=== PATIENT | female | born 1995 | race Caucasian/White ===

== ENCOUNTER 2018-02-15 13:51 | Emergency (ER) | payer OTHER ==
[2018-02-15 13:57] VITALS: BP 126/80; PULSE 67; RESP 20; TEMP 98.1
--- NOTE | 2018-02-15 14:23 | ED ---
General Adult HPI - General Chief complaint: Skin/Abscess/Foreign Body Stated complaint: Abcess on arm Source: patient, RN notes reviewed Mode of arrival: ambulatory Limitations: no limitations - History of Present Illness Initial comments: Patient is a 22-year-old female with history of IV drug use who presents the emergency department from [facility] with complaint of right antecubital abscess that has been present for 1 week. Denies antibiotic treatment. Patient denies any recent fever, chills, decreased ROM, shortness of breath, chest pain, back pain, abdominal pain, nausea or vomiting, numbness or tingling, headaches or visual changes, or any other complaints. - Related Data Previous Rx's Medication Instructions Recorded Clindamycin [Cleocin] 450 mg PO Q8H 10 Days capsule 02/15/18 Allergies Allergy/AdvReac Type Severity Reaction Status Date / Time Sulfa (Sulfonamide Allergy Rash/Hives Verified 02/15/18 13:56 Antibiotics) Review of Systems ROS Statement: Those systems with pertinent positive or pertinent negative responses have been documented in the HPI. ROS Other: All systems not noted in ROS Statement are negative. Past Medical History Past Medical History: No Reported History History of Any Multi-Drug Resistant Organisms: None Reported Past Surgical History: No Surgical Hx Reported Past Psychological History: Bipolar Smoking Status: Current every day smoker Past Alcohol Use History: None Reported Past Drug Use History: Heroin General Exam Limitations: no limitations General appearance: alert, in no apparent distress Head exam: Present: atraumatic, normocephalic Eye exam: Present: normal appearance Respiratory exam: Present: normal lung sounds bilaterally Cardiovascular Exam: Present: regular rate, normal rhythm Extremities exam: Present: full ROM, normal capillary refill, other (4x4 cm area of induration with central area of fluctuance.) Neurological exam: Present: alert, oriented X3 Psychiatric exam: Present: normal affect, normal mood Skin exam: Present: warm, dry Course Vital Signs 02/15/18 13:54 Temperature 98.1 F Pulse Rate 67 Respiratory 20 Rate Blood Pressure 126/80 O2 Sat by Pulse 99 Oximetry Procedures - Incision & Drainage Consent Obtained: verbal consent Time Out Performed?: Yes Site: upper extremity Size (cm): 4 (4x4 cm area of induration with 1x1 cm area of fluctuance.) I&D Cleaning Method: Betadine Sterile Field Used?: Yes Needle Aspiration Performed?: Yes I&D Drainage Obtained: Pus Culture Obtained?: Yes Patient Tolerated Procedure: well, no complications Medical Decision Making - Medical Decision Making Elbow x-ray negative for foreign body. Needle aspiration with aerobic wound culture done. Prescribed Clindamycin. Case discussed in detail with attending physician Dr. Greco. Disposition Clinical Impression: Abscess Disposition: HOME SELF-CARE Condition: Good Instructions: Abscess (ED) Prescriptions: Clindamycin [Cleocin] 450 mg PO Q8H 10 Days capsule Is patient prescribed a controlled substance at d/c from ED?: No Referrals: Nonstaff,Physician [Primary Care Provider] - 1-2 days Alfredo Magaña MD [STAFF PHYSICIAN] - 1-2 days
--- NOTE | 2018-02-15 14:49 | XR ---
EXAMINATION TYPE: XR elbow limited RT DATE OF EXAM: 02/15/2018 CLINICAL HISTORY: pain TECHNIQUE: Frontal, lateral images of the right elbow are obtained. COMPARISON: None. FINDINGS: There is no acute fracture/dislocation evident of the elbow. No abnormal fat pad signs ar e seen. The overlying soft tissue appears unremarkable. IMPRESSION: There is no acute fracture or dislocation of the elbow. ICD 10 NO FRACTURE, INITIAL EVALUATION
[2018-02-15] MEDS ORDERED: LIDOCAINE 1%-EPI 1:100,000 20 ML VIAL SQ ONE (15:47)
== END 2018-02-15 17:25 | disposition home or self-care (01) ==
LOC: EC 13:51
DX: L02.413 Cutaneous abscess of right upper limb (principal); F17.200 Nicotine dependence, unspecified, uncomplicated; Z88.2 Allergy status to sulfonamides; Z53.8 Procedure and treatment not carried out for other reasons
CPT/HCPCS: 10160; 87070; 87077; 87186; 87205; 99283

== ENCOUNTER 2018-02-18 17:59 | Inpatient (IN) | payer OTHER ==
[2018-02-18] MEDS ORDERED: IBUPROFEN 600 MG TAB PO STA (18:19)
[2018-02-18] MEDS ORDERED: VANCOMYCIN IV PER PHARMACY 1 EACH MISC MISCELLANE PRN (18:19)
[2018-02-18] MEDS ORDERED: PIPERACILLIN-TAZOBACTAM 3.375 GM in SODIUM CHLORIDE 0.9% 100 ML IVPB STA (18:19)
[2018-02-18] MEDS ORDERED: SODIUM CHLORIDE 0.9% 1,000 ML IV STA ×2 (18:24→19:51)
[2018-02-18] MEDS ORDERED: VANCOMYCIN 1,250 MG in SODIUM CHLORIDE 0.9% 250 ML IVPB STA (18:27)
--- NOTE | 2018-02-18 18:31 | ED ---
General Adult HPI - General Chief complaint: Fever Stated complaint: Fever,sepsis Time Seen by Provider: 02/18/18 18:11 Source: patient, EMS, RN notes reviewed Mode of arrival: EMS Limitations: no limitations - History of Present Illness Initial comments: 22-year-old female presents to the emergency department for chief complaint of fever x 1 day. Patient is an IV drug user. Patient states she uses heroin. Patient states she had an abscess form in her right elbow about 1.5 weeks ago. She states she was seen in the emergency department at that time and it was drained and cultured. Patient was put on antibiotics. Patient states she has been taking the antibiotics but she developed a fever today. Patient states she last used heroin about 6 days ago and shortly after that went to [place]. Patient states she also has a cold. She states she has had a mild cough and congestion for the past few days as well. Patient does admit to minimal sharp chest pain. Patient has no other complaints at this time including shortness of breath, abdominal pain, nausea or vomiting, headache, or visual changes. - Related Data Previous Rx's Medication Instructions Recorded Clindamycin [Cleocin] 450 mg PO Q8H 10 Days capsule 02/15/18 Allergies Allergy/AdvReac Type Severity Reaction Status Date / Time Sulfa (Sulfonamide Allergy Rash/Hives Verified 02/18/18 18:11 Antibiotics) Review of Systems ROS Statement: Those systems with pertinent positive or pertinent negative responses have been documented in the HPI. ROS Other: All systems not noted in ROS Statement are negative. Past Medical History Past Medical History: No Reported History History of Any Multi-Drug Resistant Organisms: MRSA Date of last positivie culture/infection: 02/15/18 MDRO Source:: ARM Past Surgical History: No Surgical Hx Reported Past Psychological History: Bipolar Smoking Status: Current every day smoker Past Alcohol Use History: None Reported Past Drug Use History: Heroin General Exam Limitations: no limitations General appearance: alert, in no apparent distress (Patient is well-appearing, alert and answering questions without difficulty. She is pleasant and responsive.) Head exam: Present: atraumatic, normocephalic, normal inspection Eye exam: Present: normal appearance, PERRL, EOMI. Absent: scleral icterus, conjunctival injection, periorbital swelling ENT exam: Present: normal exam, normal oropharynx, mucous membranes moist, TM's normal bilaterally, normal external ear exam Neck exam: Present: normal inspection, full ROM. Absent: tenderness, meningismus, lymphadenopathy Respiratory exam: Present: normal lung sounds bilaterally. Absent: respiratory distress, wheezes, rales, rhonchi, stridor Cardiovascular Exam: Present: regular rate, normal rhythm, normal heart sounds. Absent: systolic murmur (No significant murmur noted), diastolic murmur (No significant murmur noted), rubs, gallop, clicks GI/Abdominal exam: Present: soft, normal bowel sounds. Absent: distended, tenderness, guarding, rebound, rigid Extremities exam: Present: tenderness (Tenderness over abscess in the antecubital fossa), normal capillary refill (Capillary refill less than 2 seconds and radial pulse 2+ in the right upper extremity), joint swelling ( Minimal swelling noted in the anterior right elbow), other (Patient has a 4 cm x 4 cm area of induration noted to the right antecubital fossa, no fluctuance noted at this time.). Absent: full ROM (Patient has about 90 flexion of the right elbow with full extension and full range motion in the right wrist.) Neurological exam: Present: alert, oriented X3, CN II-XII intact Psychiatric exam: Present: normal affect, normal mood Course Vital Signs 02/18/18 02/18/18 02/18/18 18:03 19:10 20:07 Temperature 102.7 F H Pulse Rate 121 H 104 H Respiratory 20 18 16 Rate Blood Pressure 101/60 116/72 111/63 O2 Sat by Pulse 94 L 97 99 Oximetry 02/18/18 02/18/18 20:29 21:02 Temperature 100.5 F H 100.2 F H Pulse Rate 97 Respiratory 18 Rate Blood Pressure 107/64 O2 Sat by Pulse 97 Oximetry EKG Findings - EKG Comments: EKG Findings:: NSR, Ventricular rate 104, LA interval 162, QTC 497, Medical Decision Making - Medical Decision Making 22-year-old female with a past history of IV drug abuse presents to the emergency department for a chief complaint of fever times one day. Patient states she had abscess of the right antecubital fossa drained 4 days ago here and was started on clindamycin. According to culture results clindamycin was resistant. Patient states this abscess was from IV drug abuse. Abscess is about 4 cm x 4 cm in the right antecubital fossa. Patient has 90 flexion of the right elbow, full extension. X-ray of the elbow was repeated which shows no acute abnormality. Patient also complains of upper respiratory infection and has had a cough for the past few days. Patient initially presents with a temperature of 102.7 and a pulse rate of 121. She was given Tylenol. CBC did show a white count of 12.7. Patient was immediately given vancomycin, Zosyn, fluids to cover for IV drug abuse. Potassium is 3.4, patient given 40 oral K Dur. Ketones for possibly urine, patient given 2 L of fluids. Blood pressure is within acceptable limits, patient is not hypotensive. Sepsis protocol was followed. lactic 1.1. Chest x-ray shows patchy perihilar and left lower lobe infiltrate as well as additional right lower lobe infiltrate. Patient also started on Levaquin. At this time patient will be admitted to the hospital for pneumonia as well as abscess with h/o IVDA. Levaquin and vancomycin will be continued. - Lab Data Result diagrams: 02/18/18 19:30 02/18/18 18:39 Lab Results 02/18/18 02/18/18 02/18/18 Range/Units 18:39 18:39 18:39 WBC (3.8-10.6) k/uL RBC (3.80-5.40) m/uL Hgb (11.4-16.0) gm/dL Hct (34.0-46.0) % MCV (80.0-100.0) fL MCH (25.0-35.0) pg MCHC (31.0-37.0) g/dL RDW (11.5-15.5) % Plt Count (150-450) k/uL Neutrophils % % Lymphocytes % % Monocytes % % Eosinophils % % Basophils % % Neutrophils # (1.3-7.7) k/uL Lymphocytes # (1.0-4.8) k/uL Monocytes # (0-1.0) k/uL Eosinophils # (0-0.7) k/uL Basophils # (0-0.2) k/uL ESR (0-20) mm/hr PT (9.0-12.0) sec INR (<1.2) APTT (22.0-30.0) sec Sodium 138 (137-145) mmol/L Potassium 3.4 L (3.5-5.1) mmol/L Chloride 106 (98-107) mmol/L Carbon Dioxide 19 L (22-30) mmol/L Anion Gap 13 mmol/L BUN 6 L (7-17) mg/dL Creatinine 0.52 (0.52-1.04) mg/dL Est GFR (CKD-EPI)AfAm >90 (>60 ml/min/1.73 sqM) Est GFR (CKD-EPI)NonAf >90 (>60 ml/min/1.73 sqM) Glucose 119 H (74-99) mg/dL Plasma Lactic Acid Enrico 1.1 (0.7-2.0) mmol/L Calcium 9.4 (8.4-10.2) mg/dL Total Bilirubin 1.4 H (0.2-1.3) mg/dL AST 23 (14-36) U/L ALT 30 (9-52) U/L Alkaline Phosphatase 102 (38-126) U/L Total Protein 6.8 (6.3-8.2) g/dL Albumin 3.9 (3.5-5.0) g/dL Urine Color Yellow Urine Appearance Clear (Clear) Urine pH 6.0 (5.0-8.0) Ur Specific [place] 1.025 (1.001-1.035) Urine Protein 2+ H (Negative) Urine Glucose (UA) Negative (Negative) Urine Ketones 4+ H (Negative) Urine Blood Negative (Negative) Urine Nitrite Negative (Negative) Urine Bilirubin 1+ H (Negative) Urine Urobilinogen 4.0 (<2.0) mg/dL Ur Leukocyte Esterase Negative (Negative) Urine RBC 1 (0-5) /hpf Urine WBC 8 H (0-5) /hpf Ur Squamous Epith Cells 2 (0-4) /hpf Amorphous Sediment Rare H (None) /hpf Hyaline Casts 3 H (0-2) /lpf Urine Mucus Many H (None) /hpf Urine HCG, Qual (Not Detectd) Influenza Type A RNA (Not Detectd) Influenza Type B (PCR) (Not Detectd) 02/18/18 02/18/18 02/18/18 Range/Units 18:39 19:30 19:30 WBC 12.7 H (3.8-10.6) k/uL RBC 4.38 (3.80-5.40) m/uL Hgb 13.1 (11.4-16.0) gm/dL Hct 37.2 (34.0-46.0) % MCV 85.1 (80.0-100.0) fL MCH 30.0 (25.0-35.0) pg MCHC 35.2 (31.0-37.0) g/dL RDW 13.5 (11.5-15.5) % Plt Count 254 (150-450) k/uL Neutrophils % 91 % Lymphocytes % 4 % Monocytes % 3 % Eosinophils % 2 % Basophils % 0 % Neutrophils # 11.5 H (1.3-7.7) k/uL Lymphocytes # 0.5 L (1.0-4.8) k/uL Monocytes # 0.4 (0-1.0) k/uL Eosinophils # 0.2 (0-0.7) k/uL Basophils # 0.0 (0-0.2) k/uL ESR 26 H (0-20) mm/hr PT 19.4 H (9.0-12.0) sec INR 2.0 H (<1.2) APTT 25.8 (22.0-30.0) sec Sodium (137-145) mmol/L Potassium (3.5-5.1) mmol/L Chloride (98-107) mmol/L Carbon Dioxide (22-30) mmol/L Anion Gap mmol/L BUN (7-17) mg/dL Creatinine (0.52-1.04) mg/dL Est GFR (CKD-EPI)AfAm (>60 ml/min/1.73 sqM) Est GFR (CKD-EPI)NonAf (>60 ml/min/1.73 sqM) Glucose (74-99) mg/dL Plasma Lactic Acid Enrico (0.7-2.0) mmol/L Calcium (8.4-10.2) mg/dL Total Bilirubin (0.2-1.3) mg/dL AST (14-36) U/L ALT (9-52) U/L Alkaline Phosphatase (38-126) U/L Total Protein (6.3-8.2) g/dL Albumin (3.5-5.0) g/dL Urine Color Urine Appearance (Clear) Urine pH (5.0-8.0) Ur Specific [place] (1.001-1.035) Urine Protein (Negative) Urine Glucose (UA) (Negative) Urine Ketones (Negative) Urine Blood (Negative) Urine Nitrite (Negative) Urine Bilirubin (Negative) Urine Urobilinogen (<2.0) mg/dL Ur Leukocyte Esterase (Negative) Urine RBC (0-5) /hpf Urine WBC (0-5) /hpf Ur Squamous Epith Cells (0-4) /hpf Amorphous Sediment (None) /hpf Hyaline Casts (0-2) /lpf Urine Mucus (None) /hpf Urine HCG, Qual Not Detected (Not Detectd) Influenza Type A RNA (Not Detectd) Influenza Type B (PCR) (Not Detectd) 02/18/18 Range/Units 20:10 WBC (3.8-10.6) k/uL RBC (3.80-5.40) m/uL Hgb (11.4-16.0) gm/dL Hct (34.0-46.0) % MCV (80.0-100.0) fL MCH (25.0-35.0) pg MCHC (31.0-37.0) g/dL RDW (11.5-15.5) % Plt Count (150-450) k/uL Neutrophils % % Lymphocytes % % Monocytes % % Eosinophils % % Basophils % % Neutrophils # (1.3-7.7) k/uL Lymphocytes # (1.0-4.8) k/uL Monocytes # (0-1.0) k/uL Eosinophils # (0-0.7) k/uL Basophils # (0-0.2) k/uL ESR (0-20) mm/hr PT (9.0-12.0) sec INR (<1.2) APTT (22.0-30.0) sec Sodium (137-145) mmol/L Potassium (3.5-5.1) mmol/L Chloride (98-107) mmol/L Carbon Dioxide (22-30) mmol/L Anion Gap mmol/L BUN (7-17) mg/dL Creatinine (0.52-1.04) mg/dL Est GFR (CKD-EPI)AfAm (>60 ml/min/1.73 sqM) Est GFR (CKD-EPI)NonAf (>60 ml/min/1.73 sqM) Glucose (74-99) mg/dL Plasma Lactic Acid Enrico (0.7-2.0) mmol/L Calcium (8.4-10.2) mg/dL Total Bilirubin (0.2-1.3) mg/dL AST (14-36) U/L ALT (9-52) U/L Alkaline Phosphatase (38-126) U/L Total Protein (6.3-8.2) g/dL Albumin (3.5-5.0) g/dL Urine Color Urine Appearance (Clear) Urine pH (5.0-8.0) Ur Specific [place] (1.001-1.035) Urine Protein (Negative) Urine Glucose (UA) (Negative) Urine Ketones (Negative) Urine Blood (Negative) Urine Nitrite (Negative) Urine Bilirubin (Negative) Urine Urobilinogen (<2.0) mg/dL Ur Leukocyte Esterase (Negative) Urine RBC (0-5) /hpf Urine WBC (0-5) /hpf Ur Squamous Epith Cells (0-4) /hpf Amorphous Sediment (None) /hpf Hyaline Casts (0-2) /lpf Urine Mucus (None) /hpf Urine HCG, Qual (Not Detectd) Influenza Type A RNA Not Detected (Not Detectd) Influenza Type B (PCR) Not Detected (Not Detectd) Disposition Clinical Impression: Pneumonia, IV drug abuse, Abscess, Hypokalemia Disposition: ADMITTED IP TO THIS HOSP Condition: Good Is patient prescribed a controlled substance at d/c from ED?: No Time of Disposition: 20:39
--- NOTE | 2018-02-18 19:01 | XR ---
EXAMINATION TYPE: XR elbow complete RT DATE OF EXAM: 02/18/2018 CLINICAL HISTORY: pain TECHNIQUE: Frontal, lateral and oblique images of the right elbow are obtained. COMPARISON: 02/15/2018 FINDINGS: There is no acute fracture/dislocation evident of the elbow. No abnormal fat pad signs ar e seen. The overlying soft tissue appears unremarkable. IMPRESSION: There is no acute fracture or dislocation of the elbow. ICD 10 NO FRACTURE, INITIAL EVALUATION
[2018-02-18 19:02] LABS: Amorphous Sediment,Urine Rare /hpf; Appearance,Urine Clear (Clear); Bilirubin,Urine 1+ (Negative); Blood,Urine Negative (Negative); Color,Urine Yellow; Glucose,Urine (UA) Negative (Negative); Hyaline Casts,Urine 3 /lpf (0-2); Ketones,Urine 4+ (Negative); Leukocyte Esterase,Urine Negative (Negative); Mucus,Urine Many /hpf; Nitrite,Urine Negative (Negative); Protein,Urine 2+ (Negative); RBC,Urine 1 /hpf (0-5); Specific Gravity,Urine 1.025 (1.001-1.035); Squamous Epithelial Cell,Urine 2 /hpf (0-4); WBC,Urine 8 /hpf (0-5)
[2018-02-18 19:08] LABS: ALT 30 U/L (9-52); AST 23 U/L (14-36); Albumin 3.9 g/dL (3.5-5.0); Alkaline Phosphatase 102 U/L (38-126); Anion Gap 13 mmol/L; Blood Urea Nitrogen 6 mg/dL (7-17); Calcium 9.4 mg/dL (8.4-10.2); Carbon Dioxide 19 mmol/L (22-30); Chloride 106 mmol/L (98-107); Glucose 119 mg/dL (74-99); Potassium 3.4 mmol/L (3.5-5.1); Sodium 138 mmol/L (137-145); Total Bilirubin 1.4 mg/dL (0.2-1.3); Total Protein 6.8 g/dL (6.3-8.2)
--- NOTE | 2018-02-18 19:23 | XR ---
EXAMINATION TYPE: XR chest 2V DATE OF EXAM: 02/18/2018 COMPARISON: NONE HISTORY: Chest pain TECHNIQUE: Frontal and lateral views of the chest are obtained. FINDINGS: Patchy perihilar and left lower lobe infiltrate as well as additional infiltrate right lower lobe. Co rrelate for pneumonia. No evidence for pneumothorax. No pleural effusion. The cardiac silhouette size is within normal limits. The osseous structures are grossly intact. IMPRESSION: 1. Patchy perihilar and left lower lobe infiltrate as well as additional infiltrate right lower lobe . Correlate for pneumonia.
[2018-02-18 19:43] LABS: Basophils % (A) 0 %; Eosinophils # (A) 0.2 k/uL (0-0.7); Eosinophils % (A) 2 %; HCT 37.2 % (34.0-46.0); HGB 13.1 gm/dL (11.4-16.0); Lymphocytes # (A) 0.5 k/uL (1.0-4.8); Lymphocytes % (A) 4 %; MCHC 35.2 g/dL (31.0-37.0); MCV 85.1 fL (80.0-100.0); Mean Platelet Volume 7.3; Monocytes # (A) 0.4 k/uL (0-1.0); Monocytes % (A) 3 %; Neutrophils # (A) 11.5 k/uL (1.3-7.7); Neutrophils % (A) 91 %; Platelet Count 254 k/uL (150-450); RBC 4.38 m/uL (3.80-5.40); RDW 13.5 % (11.5-15.5); WBC 12.7 k/uL (3.8-10.6)
[2018-02-18 19:54] LABS: Partial Thromboplastin Time 25.8 sec (22.0-30.0); Prothrombin Time 19.4 sec (9.0-12.0)
[2018-02-18 20:29] LABS: Erythrocyte Sedimentation Rate 26 mm/hr (0-20)
[2018-02-18] MEDS ORDERED: POTASSIUM CHLORIDE ER 20 MEQ TAB.ER PO STA (20:31)
[2018-02-18] MEDS ORDERED: NALOXONE 0.4 MG/ML 1 ML VIAL IV PRN (20:31)
[2018-02-18] MEDS ORDERED: IBUPROFEN 600 MG TAB PO PRN (20:35)
[2018-02-18] MEDS: LEVOFLOXACIN 750MG-D5W PMX 750 MG in DEXTROSE/WATER 1 150ML.BAG IVPB SCH (22:24)
[2018-02-18] MEDS: SODIUM CHLORIDE 0.9% 1,000 ML IV SCH (22:36)
[2018-02-18] MEDS: ACETAMINOPHEN TAB 500 MG TAB PO SCH (23:36)
[2018-02-19] MEDS: SODIUM CHLORIDE 0.9% 1,000 ML IV SCH ×3 (05:34→21:23)
[2018-02-19] MEDS: VANCOMYCIN 1,250 MG in SODIUM CHLORIDE 0.9% 250 ML IVPB SCH ×3 (05:34→23:22)
[2018-02-19] MEDS: ACETAMINOPHEN TAB 500 MG TAB PO SCH ×3 (05:41→21:20)
[2018-02-19] MEDS ORDERED: POTASSIUM CHLORIDE ER 20 MEQ TAB.ER PO STA (11:26)
[2018-02-19] MEDS ORDERED: METHADONE 5 MG TAB PO SCH (12:15)
[2018-02-19] MEDS ORDERED: METHADONE 10 MG TAB PO SCH (12:30)
--- NOTE | 2018-02-19 12:41 | P.HPIM ---
History of Present Illness 22-year-old present female came in with compensative fever of 1 day and patient is found to have redness and possible abscess in the right antecubital fossa patient is IV drug user recently got admitted to [place] drug rehabitation program. She had this abscess about a week and half ago. Which is much worse and started having fevers now. Patient was started on IV vancomycin patient does have off with brownish sputum production and chest x-ray showing perihilar left lower lobe infiltrate and right lower lobe infiltrate possibly of pneumonia cannot be excluded patient was started on levofloxacin for this which will be continued for now blood cultures were obtained. She was never tested for hepatitis hepatitis panel will be ordered patient is comparing of severe pain in the right elbow area. Elbow x-ray did not show any fracture or dislocation there is a clear-cut needle villanueva in the right antecubital foci Review of Systems REVIEW OF SYSTEMS: CONSTITUTIONAL: No fever, no malaise, no fatigue. HEENT: No recent visual problems or hearing problems. Denied any sore throat. CARDIOVASCULAR: No chest pain, orthopnea, PND, no palpitations, no syncope. PULMONARY: No shortness of breath, no cough, no hemoptysis. GASTROINTESTINAL: No diarrhea, no nausea, no vomiting, no abdominal pain. NEUROLOGICAL: No headaches, no weakness, no numbness. HEMATOLOGICAL: Denies any bleeding or petechiae. GENITOURINARY: Denies any burning micturition, frequency, or urgency. MUSCULOSKELETAL/RHEUMATOLOGICAL: As mentioned in HPI ENDOCRINE: Denies any polyuria or polydipsia. The rest of the 14-point review of systems is negative. Past Medical History Past Medical History: No Reported History Additional Past Medical History / Comment(s): abcess rt arm ,bipolar stated see' s thrapist at [facility], pleurisy, per pt's mom they think in past pt had a mumur. History of Any Multi-Drug Resistant Organisms: MRSA Date of last positivie culture/infection: 02/15/18 MDRO Source:: ARM Past Surgical History: No Surgical Hx Reported Past Anesthesia/Blood Transfusion Reactions: No Reported Reaction Past Psychological History: Bipolar Smoking Status: Current every day smoker Past Alcohol Use History: None Reported Past Drug Use History: Heroin - Past Family History Mother Family Medical History: No Reported History Father Family Medical History: No Reported History Medications and Allergies Home Medications Medication Instructions Recorded Confirmed Type Acetaminophen Tab [Tylenol Tab] 650 mg PO Q4H PRN 02/18/18 02/18/18 History Clindamycin [Cleocin] 150 mg PO TID 02/18/18 02/18/18 History Ibuprofen [Motrin] 600 mg PO Q6HR PRN 02/18/18 02/18/18 History Multivitamin,Therapeutic [Thera] 1 tab PO DAILY 02/18/18 02/18/18 History Methadone [Dolophine] 60 mg PO DAILY 02/19/18 02/19/18 History Allergies Allergy/AdvReac Type Severity Reaction Status Date / Time Sulfa (Sulfonamide Allergy Rash/Hives Verified 02/18/18 21:16 Antibiotics) Physical Exam Vitals: Vital Signs Temp Pulse Pulse Resp BP BP Pulse Ox 02/18/18 23:55 99.0 F 91 16 99/61 95 02/18/18 21:15 99.6 F 106 H 16 117/77 99 02/18/18 21:02 100.2 F H 97 18 107/64 97 02/18/18 20:29 100.5 F H 02/18/18 20:07 104 H 16 111/63 99 02/18/18 19:10 18 116/72 97 02/18/18 18:03 102.7 F H 121 H 20 101/60 94 L Intake and Output 02/18/18 02/19/18 02/19/18 22:59 06:59 14:59 Intake Total 2000 1200 Balance 2000 1200 Intake: Amount of Fluid Infused ( 2000 ml) Intake, IV Titration 720 Amount Sodium Chloride 0.9% 1, 720 000 ml @ 120 mls/hr IV . [facility] Rx#:[id number] Oral 480 Other: # Voids 1 Weight 63.503 kg PHYSICAL EXAMINATION: GENERAL: The patient is alert and oriented x3, not in any acute distress. Well developed, well nourished. HEENT: Pupils are round and equally reacting to light. EOMI. No scleral icterus. No conjunctival pallor. Normocephalic, atraumatic. No pharyngeal erythema. No thyromegaly. CARDIOVASCULAR: S1 and S2 present. No murmurs, rubs, or gallops. PULMONARY: Chest is clear to auscultation, no wheezing or crackles. ABDOMEN: Soft, nontender, nondistended, normoactive bowel sounds. No palpable organomegaly. MUSCULOSKELETAL: No joint swelling or deformity. EXTREMITIES: No cyanosis, clubbing, or pedal edema. NEUROLOGICAL: Gross neurological examination did not reveal any focal deficits. SKIN: And has any duration redness local is of temperature with him needing marked in the antecubital foci patient does have redness and lymphangitic streaking extending in the posterior aspect of the right arm area Results CBC & Chem 7: 02/18/18 19:30 02/18/18 18:39 Labs: Abnormal Lab Results - Last 24 Hours (Table) 02/18/18 02/18/18 02/18/18 Range/Units 18:39 18:39 19:30 WBC 12.7 H (3.8-10.6) k/uL Neutrophils # 11.5 H (1.3-7.7) k/uL Lymphocytes # 0.5 L (1.0-4.8) k/uL ESR 26 H (0-20) mm/hr PT (9.0-12.0) sec INR (<1.2) Potassium 3.4 L (3.5-5.1) mmol/L Carbon Dioxide 19 L (22-30) mmol/L BUN 6 L (7-17) mg/dL Glucose 119 H (74-99) mg/dL Total Bilirubin 1.4 H (0.2-1.3) mg/dL C-Reactive Protein (<10.0) mg/L Urine Protein 2+ H (Negative) Urine Ketones 4+ H (Negative) Urine Bilirubin 1+ H (Negative) Urine WBC 8 H (0-5) /hpf Amorphous Sediment Rare H (None) /hpf Hyaline Casts 3 H (0-2) /lpf Urine Mucus Many H (None) /hpf 02/18/18 02/18/18 Range/Units 19:30 19:30 WBC (3.8-10.6) k/uL Neutrophils # (1.3-7.7) k/uL Lymphocytes # (1.0-4.8) k/uL ESR (0-20) mm/hr PT 19.4 H (9.0-12.0) sec INR 2.0 H (<1.2) Potassium (3.5-5.1) mmol/L Carbon Dioxide (22-30) mmol/L BUN (7-17) mg/dL Glucose (74-99) mg/dL Total Bilirubin (0.2-1.3) mg/dL C-Reactive Protein 236.0 H (<10.0) mg/L Urine Protein (Negative) Urine Ketones (Negative) Urine Bilirubin (Negative) Urine WBC (0-5) /hpf Amorphous Sediment (None) /hpf Hyaline Casts (0-2) /lpf Urine Mucus (None) /hpf Microbiology - Last 24 Hours (Table) 02/18/18 18:39 Urine Culture - Preliminary Urine,Voided Thrombosis Risk Factor Assmnt - Choose All That Apply Any of the Below Risk Factors Present?: No Other Risk Factors: No Thrombosis Risk Factor Assessment Level: Very Low Risk Assessment and Plan Plan: -Sepsis: Secondary to abscess in the right antecubital process of Gen. surgery will be consulted patient will be continued on antibiotics and cannot completely rule out pneumonia. Blood cultures were obtained and the patient will be continued on levofloxacin for now if patient has persistent bacteremia and endocarditis need to reconsider testing has that patient has bilateral pneumonia although patient is a smoker is definitely high risk for community- acquired pneumonia. -Hypokalemia potassium was supplemented -Bilateral pneumonia predominantly in the right lower lung urena. -Patient will be evaluated for hepatitis C because of her IV drug use -Nicotine use: Counseling was provided -IV drug use for which patient is on methadone rehabitation program after verifying methadone will be resumed
[2018-02-19] MEDS ORDERED: METHADONE 10 MG TAB PO ONE (14:00)
--- NOTE | 2018-02-19 15:57 | P.GSCN ---
History of Present Illness Consult date: 02/19/18 History of present illness: 22-year-old present female came presented with fever and pain and redness in the right antecubital fossa. She is noted to have a history of IV drug abuse and uses this site as an injection site. She states she first noticed an issue approximately 10 days ago. At that time, she states she was injecting and noticed the skin in the area began to become puffy. She states that's the last time that she injected her self and decided to start a drug rehabilitation program at that time. She states that over the past 10 days the redness in this area has increased and has become more painful. She states approximately 2 or 3 days ago, the site was incised in an urgent care or ER. She states there was some mild drainage and the area stopped draining. Currently, the patient states after antibiotics had been started that she is feeling much better. She states that the redness has decreased as well. She complains of some mild serous drainage from the site. She has no additional complaints. She denies any nausea or vomiting. She denies any chest pain at this time. She denies ever having a abscess like this previously. Review of Systems All systems: negative Past Medical History Past Medical History: No Reported History Additional Past Medical History / Comment(s): abcess rt arm ,bipolar stated see' s thrapist at [facility], pleurisy, per pt's mom they think in past pt had a mumur. History of Any Multi-Drug Resistant Organisms: MRSA Year Discovered:: 02/15/18 MDRO Source:: ARM Past Surgical History: No Surgical Hx Reported Past Anesthesia/Blood Transfusion Reactions: No Reported Reaction Past Psychological History: Bipolar Smoking Status: Current every day smoker Past Alcohol Use History: None Reported Past Drug Use History: Heroin - Past Family History Mother Family Medical History: No Reported History Father Family Medical History: No Reported History Medications and Allergies Home Medications Medication Instructions Recorded Confirmed Type Acetaminophen Tab [Tylenol Tab] 650 mg PO Q4H PRN 02/18/18 02/18/18 History Clindamycin [Cleocin] 150 mg PO TID 02/18/18 02/18/18 History Ibuprofen [Motrin] 600 mg PO Q6HR PRN 02/18/18 02/18/18 History Multivitamin,Therapeutic [Thera] 1 tab PO DAILY 02/18/18 02/18/18 History Methadone [Dolophine] 60 mg PO DAILY 02/19/18 02/19/18 History Allergies Allergy/AdvReac Type Severity Reaction Status Date / Time Sulfa (Sulfonamide Allergy Rash/Hives Verified 02/18/18 21:16 Antibiotics) Surgical - Exam Osteopathic Statement: *. No significant issues noted on an osteopathic structural exam other than those noted in the History and Physical/Consult. Vital Signs Temp Pulse Resp BP Pulse Ox 102.7 F H 121 H 20 101/60 94 L 02/18/18 18:03 02/18/18 18:03 02/18/18 18:03 02/18/18 18:03 02/18/18 18:03 - General well nourished, no distress - Eyes normal ocular movement - ENT no hearing loss - Neck trachea midline - Respiratory normal respiratory effort - Abdomen Soft, nontender, nondistended, no rebound, no guarding - Integumentary Right antecubital fossa with surrounding cellulitis. The area has some mild induration but no palpable fluctuance. There is some notable serous drainage from what appears to be a blister formation. She also is noted to have injection scarring. - Psychiatric oriented to time, oriented to person, oriented to place Results - Labs 02/18/18 19:30 02/18/18 18:39 Abnormal Lab Results - Last 24 Hours (Table) 02/18/18 02/18/18 02/18/18 Range/Units 18:39 18:39 19:30 WBC 12.7 H (3.8-10.6) k/uL Neutrophils # 11.5 H (1.3-7.7) k/uL Lymphocytes # 0.5 L (1.0-4.8) k/uL ESR 26 H (0-20) mm/hr PT (9.0-12.0) sec INR (<1.2) Potassium 3.4 L (3.5-5.1) mmol/L Carbon Dioxide 19 L (22-30) mmol/L BUN 6 L (7-17) mg/dL Glucose 119 H (74-99) mg/dL Total Bilirubin 1.4 H (0.2-1.3) mg/dL C-Reactive Protein (<10.0) mg/L Urine Protein 2+ H (Negative) Urine Ketones 4+ H (Negative) Urine Bilirubin 1+ H (Negative) Urine WBC 8 H (0-5) /hpf Amorphous Sediment Rare H (None) /hpf Hyaline Casts 3 H (0-2) /lpf Urine Mucus Many H (None) /hpf 02/18/18 02/18/18 Range/Units 19:30 19:30 WBC (3.8-10.6) k/uL Neutrophils # (1.3-7.7) k/uL Lymphocytes # (1.0-4.8) k/uL ESR (0-20) mm/hr PT 19.4 H (9.0-12.0) sec INR 2.0 H (<1.2) Potassium (3.5-5.1) mmol/L Carbon Dioxide (22-30) mmol/L BUN (7-17) mg/dL Glucose (74-99) mg/dL Total Bilirubin (0.2-1.3) mg/dL C-Reactive Protein 236.0 H (<10.0) mg/L Urine Protein (Negative) Urine Ketones (Negative) Urine Bilirubin (Negative) Urine WBC (0-5) /hpf Amorphous Sediment (None) /hpf Hyaline Casts (0-2) /lpf Urine Mucus (None) /hpf Microbiology - Last 24 Hours (Table) 02/18/18 18:39 Urine Culture - Preliminary Urine,Voided Diabetes panel 02/18/18 Range/Units 18:39 Sodium 138 (137-145) mmol/L Potassium 3.4 L (3.5-5.1) mmol/L Chloride 106 (98-107) mmol/L Carbon Dioxide 19 L (22-30) mmol/L BUN 6 L (7-17) mg/dL Creatinine 0.52 (0.52-1.04) mg/dL Glucose 119 H (74-99) mg/dL Calcium 9.4 (8.4-10.2) mg/dL AST 23 (14-36) U/L ALT 30 (9-52) U/L Alkaline Phosphatase 102 (38-126) U/L Total Protein 6.8 (6.3-8.2) g/dL Albumin 3.9 (3.5-5.0) g/dL Calcium panel 02/18/18 Range/Units 18:39 Calcium 9.4 (8.4-10.2) mg/dL Albumin 3.9 (3.5-5.0) g/dL Pituitary panel 02/18/18 Range/Units 18:39 Sodium 138 (137-145) mmol/L Potassium 3.4 L (3.5-5.1) mmol/L Chloride 106 (98-107) mmol/L Carbon Dioxide 19 L (22-30) mmol/L BUN 6 L (7-17) mg/dL Creatinine 0.52 (0.52-1.04) mg/dL Glucose 119 H (74-99) mg/dL Calcium 9.4 (8.4-10.2) mg/dL Adrenal panel 02/18/18 Range/Units 18:39 Sodium 138 (137-145) mmol/L Potassium 3.4 L (3.5-5.1) mmol/L Chloride 106 (98-107) mmol/L Carbon Dioxide 19 L (22-30) mmol/L BUN 6 L (7-17) mg/dL Creatinine 0.52 (0.52-1.04) mg/dL Glucose 119 H (74-99) mg/dL Calcium 9.4 (8.4-10.2) mg/dL Total Bilirubin 1.4 H (0.2-1.3) mg/dL AST 23 (14-36) U/L ALT 30 (9-52) U/L Alkaline Phosphatase 102 (38-126) U/L Total Protein 6.8 (6.3-8.2) g/dL Albumin 3.9 (3.5-5.0) g/dL Assessment and Plan (1) Abscess Narrative/Plan: 22-year-old female with cellulitic changes and possible abscess - Currently, there does not appear to be any fluctuance or any significant drainable fluid collection. The cellulitis appears to be improving with antibiotic regimen. We will continue to follow the patient. If any consistency or worsening, plan for an ultrasound to evaluate if there is any fluid collection to be drained. At this time, continue infectious disease recommendations for antibiotics. Thank you for this consultation, I look forward in providing in this patient's care. Current Visit: Yes Status: Acute Code(s): L02.91 - CUTANEOUS ABSCESS, UNSPECIFIED SNOMED Code(s): 682380871
[2018-02-19] MEDS: FAMOTIDINE 20 MG TAB PO SCH (21:20)
[2018-02-19] MEDS: LEVOFLOXACIN 750MG-D5W PMX 750 MG in DEXTROSE/WATER 1 150ML.BAG IVPB SCH (21:21)
[2018-02-20] MEDS: ACETAMINOPHEN TAB 500 MG TAB PO SCH ×4 (02:02→17:28)
[2018-02-20 05:55] LABS: HCT 35.4 % (34.0-46.0); HGB 12.3 gm/dL (11.4-16.0); MCH 30.1 pg (25.0-35.0); MCHC 34.8 g/dL (31.0-37.0); MCV 86.5 fL (80.0-100.0); Mean Platelet Volume 7.5; Platelet Count 229 k/uL (150-450); RBC 4.09 m/uL (3.80-5.40); RDW 13.7 % (11.5-15.5)
[2018-02-20] MEDS: VANCOMYCIN 1,250 MG in SODIUM CHLORIDE 0.9% 250 ML IVPB SCH (06:59)
[2018-02-20] MEDS: SODIUM CHLORIDE 0.9% 1,000 ML IV SCH ×3 (07:01→22:20)
[2018-02-20 07:09] LABS: ALT 32 U/L (9-52); AST 24 U/L (14-36); Albumin 2.7 g/dL (3.5-5.0); Alkaline Phosphatase 114 U/L (38-126); Anion Gap 11 mmol/L; Blood Urea Nitrogen <2 mg/dL (7-17); Calcium 8.6 mg/dL (8.4-10.2); Carbon Dioxide 15 mmol/L (22-30); Chloride 114 mmol/L (98-107); Glucose 78 mg/dL (74-99); Sodium 140 mmol/L (137-145); Total Bilirubin 0.6 mg/dL (0.2-1.3); Total Protein 5.4 g/dL (6.3-8.2)
[2018-02-20 07:15] LABS: Potassium 4.8 mmol/L (3.5-5.1)
--- NOTE | 2018-02-20 08:31 | P.PN ---
Subjective Progress Note Date: 02/20/18 Patient seen and examined at bedside. States she is feeling much better. States her arm has much decreased redness. There has been some mild drainage from the site. Objective - Vital Signs Vital signs: Vital Signs Temp 100.5 F H 02/19/18 21:15 Pulse 108 H 02/19/18 21:15 Resp 17 02/19/18 21:15 BP 120/74 02/19/18 21:15 Pulse Ox 99 02/19/18 21:15 Intake & Output 02/19/18 02/20/18 02/20/18 18:59 06:59 18:59 Intake Total 960 150 Balance 960 150 Intake: Intake, IV Titration 960 Amount Sodium Chloride 0.9% 1, 960 000 ml @ 120 mls/hr IV . Q8H20M [facility] Rx#:[id number] Oral 150 Other: # Voids 1 - Constitutional General appearance: Present: cooperative, no acute distress - Respiratory Details: No difficulty with respiration - Gastrointestinal Gastrointestinal Comment(s): Soft, nontender, nondistended, no rebound, no guarding - Integumentary Integumentary Comment(s): Cellulitis around right upper extremity abscess area is decreased tremendously from previous exam, mild serous drainage - Psychiatric Psychiatric: Present: A&O x's 3 - Labs CBC & Chem 7: 02/20/18 05:32 02/20/18 05:32 Labs: Abnormal Lab Results - Last 24 Hours (Table) 02/20/18 Range/Units 05:32 Chloride 114 H (98-107) mmol/L Carbon Dioxide 15 L (22-30) mmol/L BUN <2 L (7-17) mg/dL Creatinine 0.50 L (0.52-1.04) mg/dL Total Protein 5.4 L (6.3-8.2) g/dL Albumin 2.7 L (3.5-5.0) g/dL Microbiology - Last 24 Hours (Table) 02/18/18 18:39 Blood Culture - Preliminary Blood No Growth after 24 hours Assessment and Plan (1) Abscess Narrative/Plan: 22-year-old female with cellulitic changes and possible abscess - The area appears to be much improved from previous exam yesterday. Continue antibiotics. No plan for drainage at this time Current Visit: Yes Status: Acute Code(s): L02.91 - CUTANEOUS ABSCESS, UNSPECIFIED SNOMED Code(s): 557956379
--- NOTE | 2018-02-20 08:42 | CONS ---
CONSULTATION DATE OF SERVICE: 02/19/2018 REASON FOR CONSULTATION: 1. Right antecubital fossa abscess. 2. Pneumonia. HISTORY OF PRESENT ILLNESS: The patient is a 22-year-old female with past medical history significant for IV drug use. The patient injected her right antecubital fossa about 10 days ago. Over the last few days, the patient noticed to have increasing pain, swelling and redness of the right antecubital fossa area that has subsequently increasing painful, swollen and red, followed by some drainage. The patient is also started having a fever and chills with a fever 102.7 degrees Fahrenheit. With these symptoms, the patient presented to the ER. The patient was evaluated by the ER physician. Patient did have elevated white count of 4.7. He did have a fever of 102.7 degrees Fahrenheit. The patient also had a chest x-ray obtained that has the possibility of a left lower lobe pneumonia with concern for possible pneumonia as well as right antecubital fossa abscess. Patient was started on broad-spectrum antibiotic. I was asked to see the patient for further recommendation regarding antibiotic therapy. The patient did mention she did have some cough and with bringing up some dark sputum; however, it is getting more clear now. Denies having any chest pain. No nausea, no vomiting. No diarrhea. REVIEW OF SYSTEMS: Positive points as mentioned in the HPI. The rest of the 14 review of system has been negative. PAST MEDICAL HISTORY: Bipolar disorder, right arm abscess with previous MRSA infection. PAST SURGICAL HISTORY: No surgeries. SOCIAL HISTORY: Positive for smoking. No drinking. Does admit to heroin use. FAMILY HISTORY: No pertinent findings noticed. ALLERGIES: SULFA ANTIBIOTIC. MEDICATION: Currently include the patient is on Tylenol, Pepcid, Motrin, and Levaquin, Narcan, Zofran, vancomycin 1250 q.8 hour. PHYSICAL EXAMINATION: Blood pressure 139/66, pulse of 84, temperature 98.8, T-max 102, she is 97% on room air. General description is a young female, lying in bed in no distress. No tachypnea or accessory muscle for respiration use. HEENT EXAMINATION: Shows no pallor or scleral icterus. Oral mucosa is dry. No further erythema. NECK: Trachea central, no thyromegaly. LUNGS: Unlabored breathing with decreased BS no wheeze. Heart S1, S2. Regular rate and rhythm. ABDOMEN: Soft, no tenderness, no guarding or rigidity. EXTREMITIES: Examination of right upper arm, left forearm, antecubital, the patient did have a slight draining abscess with some chronic redness, no foul-smelling. SKIN: No rash or mass palpable. NEUROLOGICAL: Patient is awake, alert, oriented. Mood and affect normal. LABS: Hemoglobin is 13.1, white count of 11.7, BUN of 6, creatinine 0.52. CRP was 2.6. Blood culture so far negative. The patient did have wound cultures obtained on 02/18/2018 the did show possible and methicillin-resistant Staphylococcus aureus. DIAGNOSTIC IMPRESSION AND PLAN: 1. Patient with right antecubital fossa abscess from an injection of drug use with spontaneous drainage. Patient remains to have some drainage and will benefit from further drainage by the surgical team. This were discussed with Surgery. Culture has been positive for MRSA or cervical spine disease. 2. The patient who did have left lobe pneumonia, possible community-acquired. PLAN: 1. Vancomycin, pharmacy to dose, target 15, will watch kidney function closely. 2. Levaquin 750 daily. 3. Will try to obtain sputum for Gram stain culture and sensitivity. 4. Obtain his IV hepatitis serologies. 5. Will follow on clinical condition and culture to further adjust medication if needed. Thank you for this consultation. Will follow this patient with you. MMODL / IJN: [id number] /
[2018-02-20] MEDS: FAMOTIDINE 20 MG TAB PO SCH ×2 (09:19→22:19)
[2018-02-20] MEDS: METHADONE 10 MG TAB PO SCH (09:19)
[2018-02-20 13:26] LABS: HIV 1 AB Non-Reactive (Non-Reactive); HIV AB P24 Non-Reactive (Non-Reactive); HIV P24 AG Non-Reactive (Non-Reactive)
[2018-02-20] MEDS: VANCOMYCIN 1,500 MG in SODIUM CHLORIDE 0.9% 250 ML IVPB SCH ×2 (14:00→22:20)
[2018-02-20 16:06] LABS: Hepatitis A Antibody IgM Non-Reactive (Non-Reactive); Hepatitis B Core IgM Non-Reactive (Non-Reactive)
--- NOTE | 2018-02-20 16:46 | P.PN ---
Subjective 22-year-old admitted for is secondary to sepsis from right antecubital foci abscess or cellulitis. Patient has significant improvement in her symptoms and redness there is no significant induration today. Neurosurgery is not planning any incision and drainage at this time. Patient will be continued on IV vancomycin. Patient appears to have possible pneumonia on the chest x-ray because of which I'll wait until the cultures and studies comes back if cultures are positive we'll repeat the cultures again. Patient is feeling much better actually wanted to go home. Hepatitis and HIV are negative Constitutional: Denied any fatigue denied any fever. Cardio vascular: denied any chest pain, palpitations Gastrointestinal denied any nausea vomiting Pulmonary: Denied any shortness of breath cough Neurologic denied any new focal deficits All inpatient medications were reviewed and appropriate changes in these medications as dictated in the interval history and assessment and plan. Objective - Vital Signs Vital signs: Vital Signs Temp 98.6 F 02/20/18 15:00 Pulse 62 02/20/18 15:00 Resp 15 02/20/18 16:06 BP 112/69 02/20/18 15:00 Pulse Ox 100 02/20/18 15:00 Intake & Output 02/19/18 02/20/18 02/20/18 18:59 06:59 18:59 Intake Total 960 1950 680 Balance 960 1950 680 Intake: Intake, IV Titration 960 720 Amount Levofloxacin 750Mg-D5w 150 Pmx 750 mg In Dextrose/ Water 1 150ml.bag @ 100 mls/hr IVPB Q24H [facility] Rx#: [id number] Sodium Chloride 0.9% 1, 960 320 000 ml @ 120 mls/hr IV . Q8H20M [facility] Rx#:[id number] Vancomycin 1,250 mg In 250 Sodium Chloride 0.9% 250 ml @ 125 mls/hr IVPB Q8H [facility] Rx#:[id number] Oral 1230 680 Other: Voiding Method Toilet Toilet # Voids 1 3 - Exam PHYSICAL EXAMINATION: GENERAL: The patient is alert and oriented x3, not in any acute distress. Well developed, well nourished. HEENT: Pupils are round and equally reacting to light. EOMI. No scleral icterus. No conjunctival pallor. Normocephalic, atraumatic. No pharyngeal erythema. No thyromegaly. CARDIOVASCULAR: S1 and S2 present. No murmurs, rubs, or gallops. PULMONARY: Chest is clear to auscultation, no wheezing or crackles. ABDOMEN: Soft, nontender, nondistended, normoactive bowel sounds. No palpable organomegaly. MUSCULOSKELETAL: No joint swelling or deformity. EXTREMITIES: No cyanosis, clubbing, or pedal edema. NEUROLOGICAL: Gross neurological examination did not reveal any focal deficits. SKIN: Redness in the antecubital foci significantly improved there is no induration today. - Labs CBC & Chem 7: 02/20/18 05:32 02/20/18 05:32 Labs: Abnormal Lab Results - Last 24 Hours (Table) 02/20/18 Range/Units 05:32 Chloride 114 H (98-107) mmol/L Carbon Dioxide 15 L (22-30) mmol/L BUN <2 L (7-17) mg/dL Creatinine 0.50 L (0.52-1.04) mg/dL Total Protein 5.4 L (6.3-8.2) g/dL Albumin 2.7 L (3.5-5.0) g/dL Microbiology - Last 24 Hours (Table) 02/18/18 18:39 Blood Culture - Preliminary Blood No Growth after 24 hours Assessment and Plan Plan: -Sepsis: Secondary to abscess in the right antecubital process of Gen. surgery valid the patient patient is also being treated for bilateral pneumonia with levofloxacin. Awaiting blood cultures. -Hypokalemia potassium was supplemented -Bilateral pneumonia predominantly in the right lower lung urena. -Patient will be evaluated for hepatitis C because of her IV drug use -Nicotine use: Counseling was provided -IV drug use for which patient is on methadone rehabitation program
--- NOTE | 2018-02-20 16:51 | PN ---
PROGRESS NOTE DATE OF SERVICE: 02/20/2018. REASON FOR FOLLOWUP: 1. Right antecubital fossa abscess. 2. Pneumonia. INTERVAL HISTORY: The patient is currently afebrile. She is breathing comfortably. The patient did have a congested cough but did not bring up any sputum, though. No nausea, no vomiting, no abdominal pain, no diarrhea. The right antecubital fossa -- no further drainage has been noted. PHYSICAL EXAMINATION: Blood pressure 112/69 with a pulse of 62, temperature 98.6. He is 100% on 2 L nasal cannula. General description is a middle-aged female up in the bed in no distress. RESPIRATORY SYSTEM: Unlabored breathing. Coarse crackles in the left base. No wheeze. HEART: S1, S2. Regular rate and rhythm. ABDOMEN: Soft. No tenderness. LABS: Hemoglobin 12.3, white count 10,000, BUN of 2, creatinine 0.50. Blood culture has been negative. No sputum collected. DIAGNOSTIC IMPRESSION AND PLAN: 1. Patient with a right antecubital fossa abscess from injection drug use. Culture has been positive for MRSA and strep , currently on vancomycin. To continue. 2. Patient with left lower lobe pneumonia, possibly community-acquired, currently on Levaquin. Will repeat a chest x-ray to make sure we have clinical improvement before switching over to oral on discharge. Also try to obtain a sputum sample. Continue with supportive care. MMODL / IJN: [id number] /
--- NOTE | 2018-02-20 18:16 | XR ---
EXAMINATION TYPE: XR chest 2V DATE OF EXAM: 02/20/2018 COMPARISON: 02/18/2018 HISTORY: Follow-up pneumonia TECHNIQUE: Frontal and lateral views of the chest are obtained. FINDINGS: There is extensive bilateral airspace consolidation and more on the left side. Heart size is normal. Bony thorax is intact. IMPRESSION: Extensive bilateral pneumonia that is slightly worse on the left side and unchanged on t he right side compared to last exam.
[2018-02-20] MEDS ORDERED: LEVOFLOXACIN 750 MG TAB PO SCH (21:00)
[2018-02-20] MEDS: MELATONIN 5 MG TABLET PO SCH (22:19)
[2018-02-20] MEDS: ONDANSETRON 4 MG/2 ML VIAL IVP PRN (23:23)
[2018-02-21] MEDS: ACETAMINOPHEN TAB 500 MG TAB PO SCH ×4 (01:41→21:07)
[2018-02-21 02:44] LABS: Appearance,Urine Clear (Clear); Bacteria,Urine Occasional /hpf; Bilirubin,Urine Negative (Negative); Blood,Urine Negative (Negative); Color,Urine Light Yellow; Glucose,Urine (UA) Negative (Negative); Ketones,Urine 2+ (Negative); Leukocyte Esterase,Urine Moderate (Negative); Mucus,Urine Rare /hpf; Nitrite,Urine Negative (Negative); PH, Urine 5.5 (5.0-8.0); Protein,Urine Negative (Negative); RBC,Urine 3 /hpf (0-5); Specific Gravity,Urine 1.012 (1.001-1.035); Squamous Epithelial Cell,Urine <1 /hpf (0-4); Urobilinogen,Urine <2.0 mg/dL (<2.0); WBC,Urine 5 /hpf (0-5)
[2018-02-21] MEDS: VANCOMYCIN 1,500 MG in SODIUM CHLORIDE 0.9% 250 ML IVPB SCH ×3 (05:35→21:16)
[2018-02-21] MEDS: FAMOTIDINE 20 MG TAB PO SCH ×2 (08:00→21:16)
[2018-02-21] MEDS: METHADONE 10 MG TAB PO SCH (08:00)
[2018-02-21] MEDS: SODIUM CHLORIDE 0.9% 1,000 ML IV SCH (08:00)
[2018-02-21 09:00] LABS: HCT 36.3 % (34.0-46.0); HGB 12.4 gm/dL (11.4-16.0); MCH 29.2 pg (25.0-35.0); MCHC 34.2 g/dL (31.0-37.0); MCV 85.5 fL (80.0-100.0); Mean Platelet Volume 8.5; Platelet Count 210 k/uL (150-450); RBC 4.24 m/uL (3.80-5.40); RDW 13.5 % (11.5-15.5); WBC 7.6 k/uL (3.8-10.6)
[2018-02-21 09:24] LABS: Anion Gap 11 mmol/L; Blood Urea Nitrogen <2 mg/dL (7-17); Calcium 9.4 mg/dL (8.4-10.2); Carbon Dioxide 17 mmol/L (22-30); Chloride 115 mmol/L (98-107); Glucose 80 mg/dL (74-99); Potassium 5.9 mmol/L (3.5-5.1); Sodium 143 mmol/L (137-145)
--- NOTE | 2018-02-21 13:03 | P.PN ---
Subjective 22-year-old admitted for is secondary to sepsis from right antecubital foci abscess or cellulitis. Patient has significant improvement in her symptoms and redness there is no significant induration today. Neurosurgery is not planning any incision and drainage at this time. Patient will be continued on IV vancomycin. Patient appears to have possible pneumonia on the chest x-ray because of which I'll wait until the cultures and studies comes back if cultures are positive we'll repeat the cultures again. Patient is feeling much better actually wanted to go home. Hepatitis and HIV are negative 02/21/2018 Patient is not bacteremic at this time patient is otherwise clinically doing well redness in the right antecubital foci is much better. social for blood cultures are negative. Constitutional: Denied any fatigue denied any fever. Cardio vascular: denied any chest pain, palpitations Gastrointestinal denied any nausea vomiting Pulmonary: Denied any shortness of breath cough Neurologic denied any new focal deficits All inpatient medications were reviewed and appropriate changes in these medications as dictated in the interval history and assessment and plan. Objective - Vital Signs Vital signs: Vital Signs Temp 98.5 F 02/21/18 07:10 Pulse 69 02/21/18 07:10 Resp 16 02/21/18 07:10 BP 117/78 02/21/18 07:10 Pulse Ox 99 02/21/18 09:41 Intake & Output 02/20/18 02/21/18 02/21/18 18:59 06:59 18:59 Intake Total 680 1320 540 Output Total 450 Balance 680 870 540 Intake: Intake, IV Titration 240 Amount Sodium Chloride 0.9% 1, 240 000 ml @ 120 mls/hr IV . Q8H20M [facility] Rx#:[id number] Oral 680 1080 540 Output: Urine 450 Other: Voiding Method Toilet # Voids 3 2 - Exam PHYSICAL EXAMINATION: GENERAL: The patient is alert and oriented x3, not in any acute distress. Well developed, well nourished. HEENT: Pupils are round and equally reacting to light. EOMI. No scleral icterus. No conjunctival pallor. Normocephalic, atraumatic. No pharyngeal erythema. No thyromegaly. CARDIOVASCULAR: S1 and S2 present. No murmurs, rubs, or gallops. PULMONARY: Chest is clear to auscultation, no wheezing or crackles. ABDOMEN: Soft, nontender, nondistended, normoactive bowel sounds. No palpable organomegaly. MUSCULOSKELETAL: No joint swelling or deformity. EXTREMITIES: No cyanosis, clubbing, or pedal edema. NEUROLOGICAL: Gross neurological examination did not reveal any focal deficits. SKIN: Redness in the antecubital foci significantly improved there is no induration today. - Labs CBC & Chem 7: 02/21/18 08:17 02/21/18 08:17 Labs: Abnormal Lab Results - Last 24 Hours (Table) 02/21/18 02/21/18 Range/Units 01:41 08:17 Potassium 5.9 H (3.5-5.1) mmol/L Chloride 115 H (98-107) mmol/L Carbon Dioxide 17 L (22-30) mmol/L BUN <2 L (7-17) mg/dL Creatinine 0.42 L (0.52-1.04) mg/dL Urine Ketones 2+ H (Negative) Ur Leukocyte Esterase Moderate H (Negative) Urine Bacteria Occasional H (None) /hpf Urine Mucus Rare H (None) /hpf Microbiology - Last 24 Hours (Table) 02/20/18 21:30 Gram Stain - Preliminary Sputum 02/18/18 18:39 Urine Culture - Final Urine,Voided 02/20/18 13:40 Gram Stain - Preliminary Arm - Right Wound Culture - Preliminary 02/18/18 18:39 Blood Culture - Preliminary Blood No Growth after 48 hours Assessment and Plan Plan: -Sepsis: Secondary to abscess in the right antecubital process of Gen. surgery valid the patient patient is also being treated for bilateral pneumonia with levofloxacin. Awaiting blood cultures. possibility of discharge. 2 depending on the blood cultures -Hypokalemia potassium was supplementedhis potassium is elevated Lipitor potassium again before a acute for any Kayexalate -Bilateral pneumonia predominantly in the right lower lung urena. -Patient will be evaluated for hepatitis C because of her IV drug use -Nicotine use: Counseling was provided -IV drug use for which patient is on methadone rehabitation program
[2018-02-21] MEDS: MELATONIN 5 MG TABLET PO SCH (21:16)
--- NOTE | 2018-02-21 23:26 | PN ---
PROGRESS NOTE DATE OF SERVICE: 02/21/2018 REASON FOR FOLLOWUP: 1. Right antecubital fossa abscess, cellulitis from injection drug use. 2. Pneumonia. INTERVAL HISTORY: The patient is currently afebrile. She has been breathing comfortably. The patient denies having any chest pain. She did have some shortness of breath and cough, not bringing up any sputum. No nausea, vomiting. No abdominal pain or diarrhea. PHYSICAL EXAMINATION: Blood pressure is 115/76, pulse of 70, temperature 98.6. She is 100% on room air. General description is a middle-aged female lying in bed in no distress. RESPIRATORY SYSTEM: Unlabored breathing. Some coarse breath sounds at the bases bilaterally. No wheeze. HEART: S1, S2. Regular rate and rhythm. ABDOMEN: Soft. No tenderness. LABS: Hemoglobin is 12.4, white count 7.6, BUN of 2, creatinine 0.42. Hepatitis and HIV serology has been negative. Sputum culture currently pending. DIAGNOSTIC IMPRESSION AND PLAN: 1. Patient with right antecubital fossa abscess from injection drug use with a culture positive for group A strep and methicillin-resistant Staphylococcus aeruginosa. Patient currently covered with vancomycin. Trough has been low and they were told to adjust it up. 2. Patient with pneumonia, possible community-acquired. Sputum culture is currently pending. On Levaquin. Adjusting antibiotics further on the basis of the culture report. Continue with supportive care. MMODL / IJN: [id number] /
[2018-02-22] MEDS: ACETAMINOPHEN TAB 500 MG TAB PO SCH ×4 (00:36→19:06)
[2018-02-22] MEDS: ALBUTEROL NEBULIZED 2.5 MG/3 ML INHALATION PRN (06:24)
[2018-02-22 07:30] LABS: HCT 39.3 % (34.0-46.0); HGB 13.4 gm/dL (11.4-16.0); MCH 29.5 pg (25.0-35.0); MCHC 34.1 g/dL (31.0-37.0); MCV 86.5 fL (80.0-100.0); Mean Platelet Volume 6.8; Platelet Count 312 k/uL (150-450); RBC 4.54 m/uL (3.80-5.40); RDW 13.7 % (11.5-15.5); WBC 6.1 k/uL (3.8-10.6)
[2018-02-22 07:47] LABS: Anion Gap 11 mmol/L; Blood Urea Nitrogen <2 mg/dL (7-17); Carbon Dioxide 20 mmol/L (22-30); Chloride 110 mmol/L (98-107); Glucose 96 mg/dL (74-99); Sodium 141 mmol/L (137-145)
[2018-02-22] MEDS: METHADONE 10 MG TAB PO SCH (09:15)
[2018-02-22] MEDS: FAMOTIDINE 20 MG TAB PO SCH ×2 (09:15→21:51)
[2018-02-22] MEDS: LEVOFLOXACIN 750MG-D5W PMX 750 MG in DEXTROSE/WATER 1 150ML.BAG IVPB SCH ×2 (10:00→21:52)
[2018-02-22] MEDS: VANCOMYCIN 1,500 MG in SODIUM CHLORIDE 0.9% 250 ML IVPB SCH ×2 (11:05→19:00)
--- NOTE | 2018-02-22 13:28 | XR ---
EXAMINATION TYPE: XR chest 2V DATE OF EXAM: 02/22/2018 COMPARISON: Chest x-ray from 2 and 4 days ago HISTORY: Pneumonia progress study TECHNIQUE: Frontal and lateral views of the chest are obtained. FINDINGS: There is persistent left midlung and basilar opacities though improved from most recent st udy. There is persistent medial right infrahilar opacity. No pleural effusion or pneumothorax is seen bilaterally. The cardiac silhouette size is better evaluated with improved visualization of left hea rt border. The osseous structures are intact. IMPRESSION: Improving left mid and lower lung acute infiltrates. Stable right medial basilar acute i nfiltrate. No new acute infiltrate is present.
--- NOTE | 2018-02-22 16:59 | P.PN ---
Subjective 22-year-old admitted for is secondary to sepsis from right antecubital foci abscess or cellulitis. Patient has significant improvement in her symptoms and redness there is no significant induration today. Neurosurgery is not planning any incision and drainage at this time. Patient will be continued on IV vancomycin. Patient appears to have possible pneumonia on the chest x-ray because of which I'll wait until the cultures and studies comes back if cultures are positive we'll repeat the cultures again. Patient is feeling much better actually wanted to go home. Hepatitis and HIV are negative 02/21/2018 Patient is not bacteremic at this time patient is otherwise clinically doing well redness in the right antecubital foci is much better. social for blood cultures are negative. 02/22/2018 Patient is comparing of some shortness of breath because of which repeat chest x -ray was opted which is showing improving pneumonic infiltrates. Patient probably needs family tomorrow if she is feeling well patient can be discharged tomorrow on oral Bactrim and levofloxacin. Constitutional: Denied any fatigue denied any fever. Cardio vascular: denied any chest pain, palpitations Gastrointestinal denied any nausea vomiting Pulmonary: Denied any shortness of breath cough Neurologic denied any new focal deficits All inpatient medications were reviewed and appropriate changes in these medications as dictated in the interval history and assessment and plan. Objective - Vital Signs Vital signs: Vital Signs Temp 98.5 F 02/22/18 15:00 Pulse 69 02/22/18 15:00 Resp 17 02/22/18 15:00 BP 112/72 02/22/18 15:00 Pulse Ox 97 02/22/18 15:00 Intake & Output 02/21/18 02/22/18 02/22/18 18:59 06:59 18:59 Intake Total 2040 1570 Balance 2040 1570 Intake: Intake, IV Titration 960 490 Amount Sodium Chloride 0.9% 1, 960 240 000 ml @ 120 mls/hr IV . Q8H20M SILIVA Rx#:[id number] Vancomycin 1,500 mg In 250 Sodium Chloride 0.9% 250 ml @ 125 mls/hr IVPB Q8H SILVIA Rx#:[id number] Oral 1080 1080 Other: Voiding Method Toilet # Voids 3 1 2 - Exam PHYSICAL EXAMINATION: GENERAL: The patient is alert and oriented x3, not in any acute distress. Well developed, well nourished. HEENT: Pupils are round and equally reacting to light. EOMI. No scleral icterus. No conjunctival pallor. Normocephalic, atraumatic. No pharyngeal erythema. No thyromegaly. CARDIOVASCULAR: S1 and S2 present. No murmurs, rubs, or gallops. PULMONARY: Chest is clear to auscultation, no wheezing or crackles. ABDOMEN: Soft, nontender, nondistended, normoactive bowel sounds. No palpable organomegaly. MUSCULOSKELETAL: No joint swelling or deformity. EXTREMITIES: No cyanosis, clubbing, or pedal edema. NEUROLOGICAL: Gross neurological examination did not reveal any focal deficits. SKIN: Redness in the antecubital foci significantly improved there is no induration today. - Labs CBC & Chem 7: 02/22/18 07:04 02/22/18 07:04 Labs: Abnormal Lab Results - Last 24 Hours (Table) 02/22/18 Range/Units 07:04 Chloride 110 H (98-107) mmol/L Carbon Dioxide 20 L (22-30) mmol/L BUN <2 L (7-17) mg/dL Creatinine 0.44 L (0.52-1.04) mg/dL Microbiology - Last 24 Hours (Table) 02/20/18 13:40 Gram Stain - Preliminary Arm - Right Wound Culture - Preliminary Strep pyogenes (grp a) 02/20/18 21:30 Gram Stain - Preliminary Sputum Sputum Culture - Preliminary 02/18/18 18:39 Blood Culture - Preliminary Blood No Growth after 72 hours Assessment and Plan Plan: -Sepsis: Secondary to abscess in the right antecubital process of Gen. surgery valid the patient patient is also being treated for bilateral pneumonia with levofloxacin. Awaiting blood cultures. Cultures are so far negative possibly of discharge tomorrow on oral Bactrim for a week and the Floxin for a week. -Bilateral pneumonia predominantly in the right lower lung urena. -IV drug use hepatitis is negative -Nicotine use: Counseling was provided -IV drug use for which patient is on methadone rehabitation program
[2018-02-22] MEDS: MELATONIN 5 MG TABLET PO SCH (21:51)
[2018-02-22] MEDS: traZODone HCL 50 MG TAB PO SCH (22:00)
--- NOTE | 2018-02-22 22:57 | PN ---
PROGRESS NOTE DATE OF SERVICE: 02/22/2018. REASON FOR FOLLOWUP: Right antecubital fossa abscess, pneumonia. INTERVAL HISTORY: The patient is currently afebrile. She is breathing more comfortably. Continues to have a cough. No nausea, no vomiting. No abdominal pain, no diarrhea. PHYSICAL EXAMINATION: Blood pressure 149/81 with a pulse of 90, temperature 98.4, she is 94% on 2 L nasal cannula. GENERAL DESCRIPTION: An elderly female up in the bed in no distress. RESPIRATORY SYSTEM: Unlabored breathing. Some coarse crackles on the left side. No wheeze. HEART: S1, S2. Regular rate and rhythm. ABDOMEN: Soft, no tenderness. LABS: Hemoglobin 13.4, white count 6.1, BUN of 12, creatinine 0.44. Sputum is usual respiratory phani. Repeat x-ray this morning shows improvement on the left-sided pneumonia. DIAGNOSTIC IMPRESSION AND PLAN: 1. Patient in the hospital with right antecubital fossa abscess, status post spontaneous drainage. Culture with group B strep and MRSA. Currently on vancomycin, to be transitioned to Bactrim DS 1 twice a day for about a week. 2. The patient with left-sided community-acquired pneumonia. Sputum is usual respiratory phani. She will finish therapy with oral Levaquin 750 daily for about 5 to 7 days. Plan care discussed with the admitting physician. TU / ADELITAN: [id number] /
[2018-02-23] MEDS: ACETAMINOPHEN TAB 500 MG TAB PO SCH ×5 (00:55→23:58)
[2018-02-23] MEDS: VANCOMYCIN 1,500 MG in SODIUM CHLORIDE 0.9% 250 ML IVPB SCH ×3 (04:54→18:21)
[2018-02-23] MEDS: FAMOTIDINE 20 MG TAB PO SCH ×2 (08:55→22:00)
[2018-02-23] MEDS: METHADONE 10 MG TAB PO SCH (09:10)
[2018-02-23] MEDS: ALBUTEROL NEBULIZED 2.5 MG/3 ML INHALATION PRN (09:24)
[2018-02-23] MEDS ORDERED: IOPAMIDOL-300 CONTRAST 30 ML VIAL (ORAL USE) PO PRN (18:31)
--- NOTE | 2018-02-23 21:01 | PN ---
PROGRESS NOTE DATE OF SERVICE: 02/23/2018 This 22-year-old woman was admitted with Strep agalactiae sepsis and is being closely monitored at this time. The patient also had abscess cellulitis of the right antecubital fossa also. The most recent cultures are negative. The patient also had bilateral pneumonia. The patient is on broad-spectrum IV antibiotics. Multiple consultants are following the patient closely. The patient was originally from [facility]. The patient is admitted through [facility]. PAST MEDICAL HISTORY: Reviewed. REVIEW OF SYSTEMS: CARDIOVASCULAR: No angina or palpitations. RESPIRATORY: As mentioned earlier. GI no nausea or vomiting. no dysuria. Nervous system: No numbness or weakness. CURRENT MEDICATIONS ARE: Reviewed and include: 1. Tylenol p.r.n. 2. Ventolin 2.5 q.i.d. p.r.n. 3. Heparin subcu b.i.d. 4. Motrin. 5. Levaquin. 6. Dolophine. 7. Vancomycin. 8. Narcan. 9. Zofran. 10.Protonix. 11.Desyrel. 12.Vancomycin. PHYSICAL EXAM: Patient is alert, oriented x3, pulse 62, blood pressure 107/70, respirations 16, temperature 98.1, pulse ox 97% on room air. HEENT: Conjunctivae normal. Oral mucosa moist. Neck is no jugular venous distention. No carotid bruit. No lymph node enlargement. Cardiovascular system: S1, S2. Ejection systolic murmur 2/6 present on the left sternal border present. No S3, no S4. RESPIRATORY: A few scattered rhonchi and crackles. ABDOMEN: Soft, nontender. No mass palpable. LEGS: No edema. No swelling. CENTRAL NERVOUS SYSTEM: No focal deficits. Exam of the right antecubital fossa dried skin with some swelling and induration and tenderness present. No definite source of fluctuation noted. LAB STUDIES: At this time showed WBC 6.1, sodium 140. Potassium 4, CO2 is 20. ASSESSMENT: 1. Acute sepsis with Strep pyogenes group B from possibly from abscess in the right antecubital fossa. Rule out infective endocarditis. 2. Possible bilateral pneumonia. 3. Ejection systolic murmur. 4. History of IV drug abuse. 5. History of MRSA. 6. History of bipolar. 7. History of nicotine dependence. RECOMMENDATIONS AND DISCUSSION: In this 22-year-old woman who presented with multiple complex medical issues, we will monitor the patient closely. Continue the current medications, management and symptomatic treatment. Patient is on IV antibiotics, Levaquin. I would recommend bronchodilators. I recommend to continue the current medications. DVT prophylaxis. I would also recommend a 2D echo with Doppler. Transthoracic. Also recommend a CT scan of the abdomen and pelvis to complete the workup and rule out any lung abscess. The overall prognosis guarded because of multiple complex medical issues. See orders for details. Further recommendations to follow. The patient is on IV vancomycin as well. MMODL / IJN: [id number] /
[2018-02-23] MEDS: HEPARIN SODIUM,PORCINE 5,000 UNIT/ML 1 ML VIAL SQ SCH (21:59)
[2018-02-23] MEDS: MELATONIN 5 MG TABLET PO SCH (22:00)
[2018-02-23] MEDS: traZODone HCL 50 MG TAB PO SCH (22:00)
[2018-02-23] MEDS: LEVOFLOXACIN 750MG-D5W PMX 750 MG in DEXTROSE/WATER 1 150ML.BAG IVPB SCH (22:13)
[2018-02-23] MEDS: ONDANSETRON 4 MG/2 ML VIAL IVP PRN (23:24)
--- NOTE | 2018-02-24 00:17 | CT ---
EXAMINATION TYPE: CT ChestAbdPelvis wo con DATE OF EXAM: 02/23/2018 COMPARISON: None HISTORY: sepsis CT DLP: 464.7 mGycm. Automated Exposure Control for Dose Reduction was Utilized. TECHNIQUE: CT scan of the thorax, abdomen and pelvis is performed without IV contrast. FINDINGS: There is a 3.5 cm cavitating infiltrate in the anterior left upper lobe. There is some airspace conso lidation in the superior segment left lower lobe left paraspinal region. There is patchy infiltrate a nd atelectasis at the posterior lung bases. There is no pleural effusion. Heart size is normal. There is pectus excavatum chest deformity. There is no pleural effusion. There is no pneumothorax. There are no hilar masses. There is no sign of mediastinal adenopathy. Liver spleen pancreas gallbladder appear normal. Bile ducts are not dilated. There is no adrenal mass . Kidneys have normal size. There is no hydronephrosis. There is small low density calcifications in both kidneys. There is no retroperitoneal adenopathy. Bladder distends smoothly. There is no inguinal hernia. There is no free fluid in the pelvis. Uterus is anteverted. There is no evidence of a pelvic mass. There is no ascites. There is no sign of free a ir. There is no mesenteric adenopathy. I see no evidence of a bowel obstruction. There is no intestinal w all thickening. A short portion of appendix is seen in appears normal. IMPRESSION: Infiltrates in both lungs with cavitating left upper lobe infiltrate. This could be an abscess. Findi ngs consistent with infectious disease in the lungs. No abnormality demonstrated in the abdomen and pelvis.
[2018-02-24] MEDS ORDERED: VANCOMYCIN TROUGH DUE 1 EACH MISC MISCELLANE ONE (02:00)
[2018-02-24] MEDS: VANCOMYCIN 1,500 MG in SODIUM CHLORIDE 0.9% 250 ML IVPB SCH ×2 (03:31→11:12)
[2018-02-24] MEDS: ACETAMINOPHEN TAB 500 MG TAB PO SCH ×3 (05:56→17:20)
[2018-02-24] MEDS ORDERED: MULTIVITAMIN THERAPEUTIC PO SCH (09:00)
[2018-02-24] MEDS: HEPARIN SODIUM,PORCINE 5,000 UNIT/ML 1 ML VIAL SQ SCH ×2 (09:04→20:25)
[2018-02-24] MEDS: PANTOPRAZOLE 40 MG TABLET PO SCH (09:05)
[2018-02-24] MEDS: FAMOTIDINE 20 MG TAB PO SCH ×2 (09:05→20:25)
[2018-02-24] MEDS: METHADONE 10 MG TAB PO SCH (09:05)
[2018-02-24] MEDS: MULTIVITAMINS, THERA 1 EACH TAB PO SCH (11:12)
[2018-02-24] MEDS: VANCOMYCIN 1,750 MG in SODIUM CHLORIDE 0.9% 500 ML 500 ML IVPB SCH (18:20)
[2018-02-24] MEDS: traZODone HCL 50 MG TAB PO SCH (20:25)
[2018-02-24] MEDS: MELATONIN 5 MG TABLET PO SCH (20:25)
--- NOTE | 2018-02-24 21:51 | PN ---
PROGRESS NOTE DATE OF SERVICE: 02/24/2018. HISTORY: This 22-year-old woman is admitted with strep agalactiae sepsis also had history of recent IV drug abuse. Patient has significant abscess-like lesions on the left antecubital also with some induration. The patient also had a CT scan of the chest, abdomen and pelvis which were reviewed today which showed multiple abnormalities in the left, indicating also cavitary pneumonia also. The patient will be closely monitored. A 2D echo has been ordered to rule out the possibility of infective endocarditis. PAST MEDICAL HISTORY: Reviewed. REVIEW OF SYSTEMS: CARDIOVASCULAR: No angina. RESPIRATORY: As mentioned. GI: As mentioned. : No dysuria or hematuria. CURRENT MEDICATIONS: Reviewed include: 1. Tylenol 1000 mg every 6 hours p.r.n. 2. Ventolin 2.5 q.i.d. 3. Pepcid 20 mg b.i.d. 4. Heparin subcu b.i.d. 5. Motrin 600 mg at bedtime. 6. 30 mg every 6 hours p.r.n. 7. Levaquin 750 every 24 hours p.o. 8. Melatonin 10 mg at bedtime. 9. The methadone 60 mg p.o. daily. 10.Multivitamins 1 p.o. daily. 11.Narcan. 12.Zofran. 13.Protonix. 14.Vancomycin IV. PHYSICAL EXAM: Patient is alert, oriented x3. Pulse is 55, blood pressure 108/67, respirations 20, temperature 98.2, pulse ox 97% on 2 L. HEENT: Conjunctivae normal. Oral mucosa moist. NECK: No jugular venous distention. No lymph node enlargement. CARDIOVASCULAR: S1 and S2 muffled. Ejection systolic murmur present. LUNGS: Breath sounds diminished at the bases. Few scattered rhonchi and crackles. ABDOMEN: Soft, nontender. LEGS: No edema, no swelling. NERVOUS SYSTEM: No focal deficits. LABS: CBC, BMP noted. Influenza is negative. Urine Legionella is negative. Vancomycin is 12. Blood cultures, strep pyogenes group B only 1 culture. ASSESSMENT: 1. Acute sepsis with strep pyogenes group B, possibly from abscess in the right antecubital fossa, related to IV drug abuse. 2. Rule out infective endocarditis. 3. Possible bilateral pneumonia, left more than the right, with cavitary lesion and rule out septic emboli. 4. Ejection systolic murmur. 5. History of IV drug abuse. 6. History of MRSA. 7. History of bipolar. 8. History of nicotine dependence. RECOMMENDATIONS: Continue current management and continue with monitoring and symptomatic treatment. Continue IV antibiotics. Otherwise pulmonary consultation. Repeat cultures. Repeat labs will also be obtained. 2D echo. If 2D echo is normal, I would also recommend a JEANNETTE. Closely monitor. Otherwise rest of the labs are noted. Prognosis guarded. Further recommendations to follow. MMANDREA / IJN: [id number] / MTDD
[2018-02-24] MEDS: LEVOFLOXACIN 750MG-D5W PMX 750 MG in DEXTROSE/WATER 1 150ML.BAG IVPB SCH (22:42)
[2018-02-25] MEDS: ACETAMINOPHEN TAB 500 MG TAB PO SCH ×4 (00:21→18:09)
[2018-02-25] MEDS: VANCOMYCIN 1,750 MG in SODIUM CHLORIDE 0.9% 500 ML 500 ML IVPB SCH ×3 (03:48→19:03)
[2018-02-25 07:16] LABS: Basophils % (A) 1 %; Eosinophils # (A) 0.3 k/uL (0-0.7); Eosinophils % (A) 4 %; HCT 40.9 % (34.0-46.0); HGB 13.7 gm/dL (11.4-16.0); Lymphocytes # (A) 2.6 k/uL (1.0-4.8); Lymphocytes % (A) 39 %; MCH 28.7 pg (25.0-35.0); MCHC 33.6 g/dL (31.0-37.0); MCV 85.6 fL (80.0-100.0); Mean Platelet Volume 6.7; Monocytes # (A) 0.3 k/uL (0-1.0); Monocytes % (A) 4 %; Neutrophils # (A) 3.3 k/uL (1.3-7.7); Neutrophils % (A) 50 %; Platelet Count 376 k/uL (150-450); RBC 4.78 m/uL (3.80-5.40); RDW 14.2 % (11.5-15.5); WBC 6.6 k/uL (3.8-10.6)
[2018-02-25 07:36] LABS: ALT 19 U/L (9-52); AST 12 U/L (14-36); Albumin 3.2 g/dL (3.5-5.0); Alkaline Phosphatase 98 U/L (38-126); Anion Gap 8 mmol/L; Blood Urea Nitrogen <2 mg/dL (7-17); Calcium 9.4 mg/dL (8.4-10.2); Carbon Dioxide 25 mmol/L (22-30); Chloride 110 mmol/L (98-107); Glucose 96 mg/dL (74-99); Potassium 4.1 mmol/L (3.5-5.1); Sodium 143 mmol/L (137-145); Total Bilirubin 0.3 mg/dL (0.2-1.3); Total Protein 6.4 g/dL (6.3-8.2)
--- NOTE | 2018-02-25 07:47 | ECHOF ---
Referral Reason:cardiac murmur MEASUREMENTS -------- HEIGHT: 162.6 cm WEIGHT: 63.5 kg BP: 114/72 IVSd: 0.9 cm (0.6 - 1.1) LVIDd: 4.2 cm (3.9 - 5.3) LVPWd: 0.9 cm (0.6 - 1.1) IVSs: 1.1 cm LVIDs: 2.4 cm LVPWs: 1.2 cm RVIDd: 2.4 cm (< 3.3) LAESV Index (A-L): 18.35 ml/m Ao Diam: 2.4 cm (2.0 - 3.7) LA Diam: 2.1 cm (2.7 - 3.8) AV Cusp: 1.7 cm (1.5 - 2.6) EPSS: 0.3 cm MV E Isiah: 1.34 m/s MV DecT: 251 ms MV A Isiah: 0.51 m/s MV E/A Ratio: 2.63 RAP: 5.00 mmHg RVSP: 14.10 mmHg MV EF SLOPE: 85.88 mm/s (70 - 150) MV EXCURSION: 1.48 cm (> 18.000) FINDINGS -------- Resting bradycardia (HR<60bpm). This was a technically good study. The left ventricular size is normal. Left ventricular wall thickness is normal. Overall left vent ricular systolic function is normal with, an EF between 55 - 60 %. The right ventricle is normal in size and function. Normal LA size by volume 22+/-6 ml/m2. The right atrium is normal in size. The aortic valve is trileaflet, and appears structurally normal. No aortic stenosis or regurgitation. The mitral valve is normal. There is trace mitral regurgitation. Trace tricuspid regurgitation present. Right ventricular systolic pressure is normal at < 35 mmHg. There is no evidence of pulmonary hypertension. The pulmonic valve is normal. Trace/mild (physiologic) pulmonic regurgitation. The aortic root size is normal. Normal inferior vena cava with normal inspiratory collapse consistent with estimated right atrial pre ssure of 5 mmHg. There is no pericardial effusion. CONCLUSIONS -------- 1. Resting bradycardia (HR<60bpm). 2. This was a technically good study. 3. The left ventricular size is normal. 4. Left ventricular wall thickness is normal. 5. Overall left ventricular systolic function is normal with, an EF between 55 - 60 %. 6. Normal LA size by volume 22+/-6 ml/m2. 7. The aortic valve is trileaflet, and appears structurally normal. No aortic stenosis or regurgitati on. 8. There is trace mitral regurgitation. 9. Trace tricuspid regurgitation present. 10. Right ventricular systolic pressure is normal at < 35 mmHg. 11. There is no evidence of pulmonary hypertension. 12. Trace/mild (physiologic) pulmonic regurgitation. 13. The aortic root size is normal. 14. There is no pericardial effusion. [employer]OR BUS DRIVER: Lukas Addison RDCS
[2018-02-25] MEDS: HEPARIN SODIUM,PORCINE 5,000 UNIT/ML 1 ML VIAL SQ SCH ×2 (08:53→22:22)
[2018-02-25] MEDS: PANTOPRAZOLE 40 MG TABLET PO SCH (08:53)
[2018-02-25] MEDS: FAMOTIDINE 20 MG TAB PO SCH ×2 (08:53→22:22)
[2018-02-25] MEDS: METHADONE 10 MG TAB PO SCH (08:53)
[2018-02-25] MEDS: MULTIVITAMINS, THERA 1 EACH TAB PO SCH (10:52)
[2018-02-25 11:44] VITALS: BMI 24.0
--- NOTE | 2018-02-25 15:08 | P.CNPUL ---
History of Present Illness Consult date: 02/25/18 Requesting physician: Levy Thorpe Reason for consult: cough, pneumonia, abnormal CXR/CT History of present illness: This is a 22-year-old white female patient was admitted to the hospital on when she presented for evaluation fever and chills, worsening abscess in her right elbow. Patient also had a mild cough and chest congestion, she was bringing up some brown colored thick phlegm, she admitted to some minimal sharp chest pain. [facility] of [facility]. On admission her fever was 103F, she states she had been sick with cold type symptoms for 3 days prior to admission. Her right arm abscess was drained in the emergency department approximately 2-1/2 weeks ago, and patient was treated with oral clindamycin, with no improvement. Patient had swelling, redness, and 4 x 4 centimeter area of induration in the right antecubital fossa. Wound culture result was positive for strep pyogenes group A , and MRSA. Strep A was resistant to clindamycin, MRSA showed susceptibility. Chest x-ray showed patchy perihilar and left lower and upper lobe infiltrate. Lab work showed WBC of 12.7, hemoglobin of 13.1, INR of 2.0, sodium was 138, potassium is 3.4, CO2 is 19, BUN was 6, creatinine was 0.52, CRP was 236, lactic acid was 1.1, urinalysis showed 2+ protein, 4+ ketones, 1+ bilirubin, hCG was negative, influenza screen was negative, appetite has been was nonreactive, Legionella urine antigen was negative, repeat influenza was negative. Patient has been on antibiotics including Levaquin and vancomycin, ID service is involved in managing the antibiotics. Patient has been afebrile for last several days. Follow-up chest x-ray on February 20 showed extensive bilateral pneumonia worse on the left side. Chest x-ray on the showed improving left mid and lower lung acute infiltrates. And stable right medial basilar infiltrate. Patient's right elbow abscess is improving, redness and swelling have subsided, as well as the pain. Wound cultures are positive for strep pyogenes, sputum culture showed many normal respiratory phani, urine cultures pending. Echocardiogram showed an EF of 55-60%, with no significant valvular abnormality. CT chest abdomen and pelvis was obtained, and showed a 3.5 cm cavitating infiltrate in the anterior left upper lobe, airspace consolidation in the superior segment left lower lobe left paraspinal region. Patchy infiltrate and atelectasis at the posterior lung bases. Patient is resting comfortably in bed, in no acute distress, she states her reading has improved, she still coughing occasionally and producing some clear sputum, no fever or chills, room air pulse ox is 100%. Review of Systems All systems: negative Constitutional: Reports fever, Denies chills Eyes: denies blurred vision, denies pain Ears, nose, mouth and throat: Denies headache, Denies sore throat Cardiovascular: Denies chest pain, Denies shortness of breath Respiratory: Reports congestion, Reports cough with sputum, Reports dyspnea, Reports pain, Denies cough Gastrointestinal: Denies abdominal pain, Denies diarrhea, Denies nausea, Denies vomiting Genitourinary: Denies dysuria, Denies hematuria Musculoskeletal: Denies myalgias Integumentary: Denies pruritus, Denies rash Neurological: Denies numbness, Denies weakness Psychiatric: Denies anxiety, Denies depression Endocrine: Denies fatigue, Denies weight change Past Medical History Past Medical History: No Reported History Additional Past Medical History / Comment(s): abcess rt arm ,bipolar stated see' s thrapist at [facility], pleurisy, per pt's mom they think in past pt had a mumur. History of Any Multi-Drug Resistant Organisms: MRSA Date of last positivie culture/infection: 02/15/18 MDRO Source:: ARM Past Surgical History: No Surgical Hx Reported Past Anesthesia/Blood Transfusion Reactions: No Reported Reaction Past Psychological History: Bipolar Smoking Status: Current every day smoker Past Alcohol Use History: None Reported Past Drug Use History: Heroin - Past Family History Mother Family Medical History: No Reported History Father Family Medical History: No Reported History Medications and Allergies Home Medications Medication Instructions Recorded Confirmed Type Acetaminophen Tab [Tylenol Tab] 650 mg PO Q4H PRN 02/18/18 02/18/18 History Ibuprofen [Motrin] 600 mg PO Q6HR PRN 02/18/18 02/18/18 History Multivitamin,Therapeutic [Thera] 1 tab PO DAILY 02/18/18 02/18/18 History Methadone [Dolophine] 60 mg PO DAILY 02/19/18 02/19/18 History Albuterol Inhaler [Ventolin Hfa 1 - 2 puff INHALATION Q6HR PRN #1 02/22/18 Rx Inhaler] inhaler Levofloxacin [Levaquin] 750 mg PO DAILY #7 tab 02/22/18 Rx Sulfamethox-Tmp 800-160Mg [Bactrim 1 tab PO Q12HR #14 tab 02/22/18 Rx DS 800-160 mg] Allergies Allergy/AdvReac Type Severity Reaction Status Date / Time Sulfa (Sulfonamide Allergy Rash/Hives Verified 02/18/18 21:16 Antibiotics) Physical Exam Vitals: Vital Signs Temp Pulse Resp BP Pulse Ox 02/25/18 08:00 20 02/25/18 07:00 98.2 F 72 20 104/73 100 02/25/18 00:30 98.2 F 63 16 106/71 95 02/24/18 20:22 98.9 F 66 16 102/63 95 02/24/18 14:56 98.2 F 55 L 20 108/67 97 Intake and Output 02/24/18 02/25/18 02/25/18 22:59 06:59 14:59 Intake Total 590 125 Balance 590 125 Intake: Intake, IV Titration 125 Amount Vancomycin 1,500 mg In 125 Sodium Chloride 0.9% 250 ml @ 125 mls/hr IVPB Q8H [facility] Rx#:[id number] Oral 590 Other: # Voids 2 2 Weight 63.503 kg GENERAL EXAM: Alert, pleasant, 22-year-old white female, comfortable in no apparent distress. HEAD: Normocephalic/atraumatic. EYES: Normal reaction of pupils, equal size. Conjunctiva pink, sclera white. NOSE: Clear with pink turbinates. THROAT: No erythema or exudates. NECK: No masses, no JVD, no thyroid enlargement, no adenopathy. CHEST: No chest wall deformity. Symmetrical expansion. LUNGS: Equal breath sounds bilaterally, with some scattered rhonchi, reveals no wheezes CVS: Regular rate and rhythm, normal S1 and S2, no gallops, no murmurs, no rubs ABDOMEN: Soft, nontender. No hepatosplenomegaly, normal bowel sounds, no guarding or rigidity. EXTREMITIES: No clubbing, no edema, no cyanosis, 2+ pulses and upper and lower extremities. MUSCULOSKELETAL: Muscle strength and tone normal. SPINE: No scoliosis or deformity SKIN: No rashes CENTRAL NERVOUS SYSTEM: Alert and oriented -3. No focal deficits, tone is normal in all 4 extremities. PSYCHIATRIC: Alert and oriented -3. Appropriate affect. Intact judgment and insight. Results - Laboratory Findings CBC and BMP: 02/25/18 06:28 02/25/18 06:28 PT/INR, D-dimer PT 19.4 sec (9.0-12.0) H 02/18/18 19:30 INR 2.0 (<1.2) H 02/18/18 19:30 Abnormal lab findings: Abnormal Labs 02/18/18 02/18/18 02/18/18 18:39 18:39 19:30 WBC 12.7 H Neutrophils # 11.5 H Lymphocytes # 0.5 L ESR 26 H PT INR Potassium 3.4 L Chloride Carbon Dioxide 19 L BUN 6 L Creatinine Glucose 119 H Total Bilirubin 1.4 H AST C-Reactive Protein Total Protein Albumin Urine Protein 2+ H Urine Ketones 4+ H Urine Bilirubin 1+ H Ur Leukocyte Esterase Urine WBC 8 H Amorphous Sediment Rare H Urine Bacteria Hyaline Casts 3 H Urine Mucus Many H 02/18/18 02/18/18 02/20/18 19:30 19:30 05:32 WBC Neutrophils # Lymphocytes # ESR PT 19.4 H INR 2.0 H Potassium Chloride 114 H Carbon Dioxide 15 L BUN <2 L Creatinine 0.50 L Glucose Total Bilirubin AST C-Reactive Protein 236.0 H Total Protein 5.4 L Albumin 2.7 L Urine Protein Urine Ketones Urine Bilirubin Ur Leukocyte Esterase Urine WBC Amorphous Sediment Urine Bacteria Hyaline Casts Urine Mucus 02/21/18 02/21/18 02/22/18 01:41 08:17 07:04 WBC Neutrophils # Lymphocytes # ESR PT INR Potassium 5.9 H Chloride 115 H 110 H Carbon Dioxide 17 L 20 L BUN <2 L <2 L Creatinine 0.42 L 0.44 L Glucose Total Bilirubin AST C-Reactive Protein Total Protein Albumin Urine Protein Urine Ketones 2+ H Urine Bilirubin Ur Leukocyte Esterase Moderate H Urine WBC Amorphous Sediment Urine Bacteria Occasional H Hyaline Casts Urine Mucus Rare H 02/25/18 06:28 WBC Neutrophils # Lymphocytes # ESR PT INR Potassium Chloride 110 H Carbon Dioxide BUN <2 L Creatinine Glucose Total Bilirubin AST 12 L C-Reactive Protein Total Protein Albumin 3.2 L Urine Protein Urine Ketones Urine Bilirubin Ur Leukocyte Esterase Urine WBC Amorphous Sediment Urine Bacteria Hyaline Casts Urine Mucus - Diagnostic Findings Chest x-ray: report reviewed, image reviewed CT scan - chest: report reviewed, image reviewed Assessment and Plan Plan: Assessment: #1. Cavitating lung lesion in the left upper lobe and airspace consolidation in the left lower lobe, likely related to lung infection, possibly with MRSA. Another possibility includes septic emboli #2. Acute sepsis related to right arm abscess from the drug use with recent drainage, with cultures positive for MRSA and Strep A, hardly on combination of Levaquin and vancomycin #3. Rule out infective endocarditis #4. Current smoker, 5 cigarettes a day #5. IV heroin abuse, currently at the [facility] #6. Occasional marijuana use #7. History of MRSA infection #8. Bipolar disorder Plan: Continue current antibiotic treatment. All chest x-rays and CT of chest abdomen and pelvis were reviewed by Dr. Mon. Agree with JEANNETTE, although the transthoracic echo did not show any significant abnormality. Repeat blood cultures. No need for bronchoscopy. We'll continue to closely follow I performed a history & physical examination of the patient and discussed their management with my nurse practitioner, Kenzie Valenzuela. I reviewed the nurse practitioner's note and agree with the documented findings and plan of care. Lung sounds are positive for a few scattered rhonchi. The findings and the impression was discussed with the patient. I attest to the documentation by the nurse practitioner. Time with Patient: Greater than 30
[2018-02-25] MEDS: PIPERACILLIN-TAZOBACTAM 3.375 GM in SODIUM CHLORIDE 0.9% 100 ML IVPB SCH (18:09)
--- NOTE | 2018-02-25 19:22 | PN ---
PROGRESS NOTE DATE OF SERVICE: 02/25/2018 This 22-year-old woman was admitted with significant abscess of the left wrist, also had possibly lung abscess and septic emboli too. The patient is on broad- spectrum IV antibiotics. CT scan noted. JEANNETTE did not show any acute abnormality. No chest pain. No palpitations. No fever. EXAM: Alert and oriented x3. Pulse 58, blood pressure ntd, temperature 98.2, pulse ox 99 percent on room air. HEENT: Conjunctivae normal. Oral mucosa moist. NECK: No jugular venous distention. No lymph node enlargement. CARDIOVASCULAR: S1, S2. RESPIRATORY: Diminished breath sounds at the bases. Scattered rhonchi and crackles. ABDOMEN: Soft, nontender. LEGS: No swelling. NERVOUS SYSTEM: No focal deficits. LABS: CBC within normal. Sodium 140, potassium 4.1. Influenza negative. ASSESSMENT: 1. Acute sepsis with Streptococcus pyogenes group B possibly from abscess in the right antecubital fossa related to IV drug abuse. 2. Bilateral pneumonia with cavitating lesions and possibly infected septic emboli. 3. Rule out infective endocarditis. 4. Ejection systolic murmur. 5. History of IV drug abuse. 6. History of MRSA. 7. History of bipolar. 8. History of nicotine dependence. RECOMMENDATIONS: Recommend to continue current medication, continue to monitor, continue symptomatic treatment. Otherwise, at this time I would continue with broad-spectrum IV antibiotics. A paradoxical embolism is also a possibility. Further recommendations to follow. MMODL / IJN: [id number] / MTDD
[2018-02-25] MEDS: LEVOFLOXACIN 750MG-D5W PMX 750 MG in DEXTROSE/WATER 1 150ML.BAG IVPB SCH (22:22)
[2018-02-25] MEDS: traZODone HCL 50 MG TAB PO SCH (22:22)
[2018-02-25] MEDS: MELATONIN 5 MG TABLET PO SCH (22:22)
[2018-02-26] MEDS: ACETAMINOPHEN TAB 500 MG TAB PO SCH ×4 (00:08→18:16)
--- NOTE | 2018-02-26 00:16 | PN ---
PROGRESS NOTE DATE OF SERVICE: 02/25/2018. REASON FOR FOLLOWUP: 1. Right antecubital fossa abscess from IV drug use. 2. Pneumonia with CT suggestive of left upper lobe cavitating pneumonia. INTERVAL HISTORY: The patient is afebrile. The patient overall is breathing more comfortably. The patient did mention that the cough has decreased in intensity and is bringing up more clear sputum. No hemoptysis. No chest pain. No nausea, no vomiting. No abdominal pain and no diarrhea. PHYSICAL EXAMINATION: Her blood pressure is 107/74 with a pulse of 84, temperature 97.9. She is 95% on room air. GENERAL DESCRIPTION: A young female, up in the bed in no distress. RESPIRATORY SYSTEM: Unlabored breathing. Some decreased breath sounds. No wheeze. HEART: S1, S2. Regular rate and rhythm. ABDOMEN: Soft, no tenderness. EXTREMITIES: No edema of the feet. Right antecubital fossa swelling has resolved. LAB: Hemoglobin 17.7, white count of 6.6 with a BUN of 2, creatinine 0.53. Blood cultures have been negative. Sputum is usual respiratory phani. DIAGNOSTIC IMPRESSION AND PLAN: Patient with right antecubital fossa abscess, however, culture positive for MRSA and group B Strep, that area has almost completely resolved. Also with left upper lobe cavitating pneumonia. We will add Zosyn every 8 hours. Continue vancomycin. Hopefully, the patient has shown clinical improvement and will be transitioning to oral antibiotic. Close outpatient followup. She is not a candidate for outpatient IV antibiotic therapy as she continues with active IV drug use. Continue supportive care. MMODL / IJN: [id number] /
[2018-02-26] MEDS ORDERED: VANCOMYCIN TROUGH DUE 1 EACH MISC MISCELLANE ONE (02:00)
[2018-02-26 02:41] LABS: Basophils % (A) 0 %; Eosinophils # (A) 0.3 k/uL (0-0.7); Eosinophils % (A) 4 %; HCT 39.1 % (34.0-46.0); Lymphocytes # (A) 2.5 k/uL (1.0-4.8); Lymphocytes % (A) 34 %; MCH 28.9 pg (25.0-35.0); MCHC 33.2 g/dL (31.0-37.0); MCV 86.9 fL (80.0-100.0); Mean Platelet Volume 6.4; Monocytes # (A) 0.2 k/uL (0-1.0); Monocytes % (A) 3 %; Neutrophils % (A) 55 %; Platelet Count 359 k/uL (150-450); RBC 4.49 m/uL (3.80-5.40); RDW 14.2 % (11.5-15.5); WBC 7.3 k/uL (3.8-10.6)
[2018-02-26 02:51] LABS: ALT 20 U/L (9-52); AST 13 U/L (14-36); Albumin 3.3 g/dL (3.5-5.0); Alkaline Phosphatase 94 U/L (38-126); Anion Gap 9 mmol/L; Blood Urea Nitrogen 4 mg/dL (7-17); Calcium 9.3 mg/dL (8.4-10.2); Carbon Dioxide 22 mmol/L (22-30); Chloride 110 mmol/L (98-107); Glucose 97 mg/dL (74-99); Potassium 3.9 mmol/L (3.5-5.1); Sodium 141 mmol/L (137-145); Total Bilirubin 0.3 mg/dL (0.2-1.3); Total Protein 6.2 g/dL (6.3-8.2)
[2018-02-26] MEDS: PIPERACILLIN-TAZOBACTAM 3.375 GM in SODIUM CHLORIDE 0.9% 100 ML IVPB SCH ×3 (03:17→17:24)
[2018-02-26] MEDS: VANCOMYCIN 1,750 MG in SODIUM CHLORIDE 0.9% 500 ML 500 ML IVPB SCH ×3 (03:17→18:16)
[2018-02-26] MEDS: HEPARIN SODIUM,PORCINE 5,000 UNIT/ML 1 ML VIAL SQ SCH ×3 (10:04→22:28)
[2018-02-26] MEDS: MULTIVITAMINS, THERA 1 EACH TAB PO SCH (10:05)
[2018-02-26] MEDS: PANTOPRAZOLE 40 MG TABLET PO SCH (10:05)
[2018-02-26] MEDS: FAMOTIDINE 20 MG TAB PO SCH ×2 (10:05→22:28)
[2018-02-26] MEDS: METHADONE 10 MG TAB PO SCH (10:05)
--- NOTE | 2018-02-26 15:27 | P.PN ---
Subjective Progress Note Date: 02/26/18 Principal diagnosis: Strep. pyogenes pneumonia and lung abscess This is a 22-year-old white female patient was admitted to the hospital on 02/18 when she presented for evaluation fever and chills, worsening abscess in her right elbow. Patient also had a mild cough and chest congestion, she was bringing up some brown colored thick phlegm, she admitted to some minimal sharp chest pain. [facility]. On admission her fever was 103F, she states she had been sick with cold type symptoms for 3 days prior to admission. Her right arm abscess was drained in the emergency department approximately 2-1/2 weeks ago, and patient was treated with oral clindamycin, with no improvement. Patient had swelling, redness, and 4 x 4 centimeter area of induration in the right antecubital fossa. Wound culture result was positive for strep pyogenes group A , and MRSA. Strep A was resistant to clindamycin, MRSA showed susceptibility. Chest x-ray showed patchy perihilar and left lower and upper lobe infiltrate. Lab work showed WBC of 12.7, hemoglobin of 13.1, INR of 2.0, sodium was 138, potassium is 3.4, CO2 is 19, BUN was 6, creatinine was 0.52, CRP was 236, lactic acid was 1.1, urinalysis showed 2+ protein, 4+ ketones, 1+ bilirubin, hCG was negative, influenza screen was negative, appetite has been was nonreactive, Legionella urine antigen was negative, repeat influenza was negative. Patient has been on antibiotics including Levaquin and vancomycin, ID service is involved in managing the antibiotics. Patient has been afebrile for last several days. Follow-up chest x-ray on February 20 showed extensive bilateral pneumonia worse on the left side. Chest x-ray on the showed improving left mid and lower lung acute infiltrates. And stable right medial basilar infiltrate. Patient's right elbow abscess is improving, redness and swelling have subsided, as well as the pain. Wound cultures are positive for strep pyogenes, sputum culture showed many normal respiratory phani, urine cultures pending. Echocardiogram showed an EF of 55-60%, with no significant valvular abnormality. CT chest abdomen and pelvis was obtained, and showed a 3.5 cm cavitating infiltrate in the anterior left upper lobe, airspace consolidation in the superior segment left lower lobe left paraspinal region. Patchy infiltrate and atelectasis at the posterior lung bases. Patient is resting comfortably in bed, in no acute distress, she states her reading has improved, she still coughing occasionally and producing some clear sputum, no fever or chills, room air pulse ox is 100%. Patient was reevaluated today on 02/26/2018, clinically the patient is feeling great, no cough no wheezing or shortness of breath, no fever no chills no hemoptysis no chest pain. Remains on antibiotics as per infectious disease for strep. pyogenes infection, presently on vancomycin and Levaquin. She is also on Zosyn. Patient is being considered for JEANNETTE, blood cultures have been negative, however the appearance lung Disease on the CT of the Chest Would Raise the Possibility of Septic Emboli. Clinically, the Patient Is Doing Better Than Expected. Labs Showed Normal CBC, Normal Basic Metabolic Profile, Normal Renal Profile. Objective - Vital Signs Vital signs: Vital Signs Temp 97.7 F 02/26/18 07:19 Pulse 54 L 02/26/18 07:19 Resp 17 02/26/18 15:15 BP 116/74 02/26/18 07:19 Pulse Ox 95 02/26/18 07:19 Intake & Output 02/25/18 02/26/18 02/26/18 18:59 06:59 18:59 Intake Total 1350 1600 Balance 1350 1600 Weight 63.503 kg Intake: Intake, IV Titration 1350 800 Amount Levofloxacin 750Mg-D5w 150 100 Pmx 750 mg In Dextrose/ Water 1 150ml.bag @ 100 mls/hr IVPB Q24H [facility] Rx#: [id number] Piperacillin-Tazobactam 3 200 200 .375 gm In Sodium Chloride 0.9% 100 ml @ 25 mls/hr IVPB Q8H [facility] Rx#: [id number] Vancomycin 1,750 mg In 1000 500 Sodium Chloride 0.9% 500 ml 500 ml @ 166.667 mls/ hr IVPB Q8H [facility] Rx#: [id number] Oral 800 Other: Voiding Method Toilet Toilet # Voids 2 - Exam Physical Exam revealed a 22-year-old female in no distress HEENT:[Neck is supple.] [No neck masses.] [No thyromegaly.] [No JVD.] Chest: [Clear throughout, no crackles, no rhonchi, no wheezes.] Cardiac Exam: [Normal S1 and S2, no S3 gallop, no murmur.] Abdomen: [Soft, nontender, no megaly, no rebound, no guarding, normal bowel sounds.] Extremities: [No clubbing, no edema, no cyanosis.] Neurological Exam: [No focal neurologic deficit. Skin: No rashes. Lymphatics: No lymphadenopathy Psychiatric: Normal mood affect and mental status examination.] - Labs CBC & Chem 7: 02/26/18 02:20 02/26/18 02:20 Labs: Abnormal Lab Results - Last 24 Hours (Table) 02/26/18 Range/Units 02:20 Chloride 110 H (98-107) mmol/L BUN 4 L (7-17) mg/dL AST 13 L (14-36) U/L Total Protein 6.2 L (6.3-8.2) g/dL Albumin 3.3 L (3.5-5.0) g/dL Microbiology - Last 24 Hours (Table) 02/24/18 12:42 Blood Culture - Preliminary Blood No Growth after 48 hours 02/24/18 18:40 Urine Culture - Final Urine,Clean Catch 02/25/18 12:00 Gram Stain - Final Sputum Sputum Culture - Final Assessment and Plan Assessment: #1. Cavitating lung lesion in the anterior left upper lobe and airspace consolidation in the left lower lobe, likely related to lung infection, possibly with strep pyogenes . Another possibility includes septic emboli #2. Acute sepsis related to right arm abscess from the drug use with recent drainage, with cultures positive strep pyogenes #3. Rule out infective endocarditis #4. Current smoker, 5 cigarettes a day #5. IV heroin abuse, [facility] #6. Occasional marijuana use #7. History of MRSA infection #8. Bipolar disorder Recommendation: Continue treatment plan as per infectious disease on the case, no value of performing bronchoscopy, clinically the patient is doing better than expected, a transesophageal echocardiogram would be recommended. Long- term IV antibiotics as per infectious disease will be recommended. Follow up on outpatient basis on lung abscess is recommended. We'll continue to follow while inpatient. Repeat chest x-ray in a.m. Time with Patient: Less than 30
[2018-02-26] MEDS: traZODone HCL 50 MG TAB PO SCH (22:28)
[2018-02-26] MEDS: MELATONIN 5 MG TABLET PO SCH (22:28)
[2018-02-26] MEDS: LEVOFLOXACIN 750MG-D5W PMX 750 MG in DEXTROSE/WATER 1 150ML.BAG IVPB SCH (22:28)
[2018-02-27] MEDS: ACETAMINOPHEN TAB 500 MG TAB PO SCH ×4 (00:39→17:57)
[2018-02-27] MEDS: PIPERACILLIN-TAZOBACTAM 3.375 GM in SODIUM CHLORIDE 0.9% 100 ML IVPB SCH ×3 (02:03→17:57)
[2018-02-27] MEDS: VANCOMYCIN 1,750 MG in SODIUM CHLORIDE 0.9% 500 ML 500 ML IVPB SCH ×3 (04:38→18:02)
--- NOTE | 2018-02-27 05:44 | PN ---
PROGRESS NOTE DATE OF SERVICE: 02/26/2018 REASON FOR FOLLOWUP: 1. Right antecubital fossa abscess. 2. Left upper lobe pneumonia with possible abscess. INTERVAL HISTORY: The patient is afebrile. She is breathing much comfortably. Patient denies having any chest pain or shortness of breath. Cough is mostly dry in nature. No nausea, no vomiting. No abdominal pain and no diarrhea. PHYSICAL EXAMINATION: On examination, blood pressure is 96/60 with a pulse of 58, temperature 98.5. She is 96% on room air. General description is a middle aged female, lying in bed in no distress. RESPIRATORY SYSTEM: Unlabored breathing with decreased breath sounds at the bases. No wheeze. HEART: S1, S2. Regular rate and rhythm. ABDOMEN: Soft, no tenderness. EXTREMITIES: No edema of the feet. LABS: Hemoglobin is 13, white count of 7.3, BUN of 4, creatinine 0.53. Blood culture has been negative. DIAGNOSTIC IMPRESSION AND PLAN: 1. Patient with right antecubital fossa abscess. Outpatient culture was methicillin- resistant Staphylococcus aureus and Strep pyogenes. Culture here has been Strep pyogenes for which patient has been on vancomycin. 2. Patient with left upper lobe pneumonia, clinically doubt endocarditis as the patient has multiple blood cultures and those have been negative. CT will be reviewed with the radiologist to determine her discharge antibiotic. However in view of her active IV drug use, outpatient IV antibiotic therapy will been option only if the patient goes to a half-way to receive those antibiotics and not in a home setting. Currently on vancomycin and Zosyn that will be continued for now. Continue supportive care. MMODL / IJN: [id number] /
--- NOTE | 2018-02-27 07:54 | PN ---
PROGRESS NOTE DATE OF SERVICE: 02/26/2018 This 22-year-old woman was admitted with significant sepsis, strep pyogenes group also had multiple abscess and cavitary pneumonia. The infective endocarditis has been done. Infectious Disease is following the patient along with Dr. Mon. The patient was also slated to have JEANNETTE. At this time the patient will be closely monitored. No chest pain or palpitations. Occasional cough is reported. PHYSICAL EXAMINATION: On exam, alert and oriented x3. The pulse is 51, blood pressure 102/64, respirations 15, temperature 98.2, pulse ox 95% on room air. HEENT: Conjunctivae normal. NECK: No jugular venous distention. CARDIOVASCULAR: S1, S2 muffled. Ejection systolic murmur. RESPIRATORY: Breath sounds diminished at the bases. A few scattered rhonchi and crackles. ABDOMEN: Soft, nontender. NERVOUS SYSTEM: No focal deficits. LABS: CBC within normal limits. Sodium 141, potassium 3.9. Albumin 3.3. Influenza is negative. ASSESSMENT: 1. Acute sepsis with Streptococcus pyogenes group possibly from abscess in the right antecubital fossa related to IV drug abuse. 2. Bilateral pneumonia with cavitating lesions with possible infected septic emboli. 3. Rule out infective endocarditis. 4. Ejection systolic murmur. 5. History of IV drug abuse. 6. History of methicillin-resistant Staphylococcus aureus .. 7. History of bipolar. 8. History of nicotine dependence. RECOMMENDATIONS AND DISCUSSION: Recommend to continue current medications, continue symptomatic treatment. The patient is on broad-spectrum IV antibiotics. The most recent cultures are negative so far. Cardiology is planning JEANNETTE and continue the rest of the medications. Prognosis guarded because of multiple complex medical issues. The patient will require long-term IV antibiotics. We will follow the patient closely with Infectious Disease. MMODL / IJN: [id number] / CAMERON
--- NOTE | 2018-02-27 08:38 | XR ---
EXAMINATION TYPE: XR chest 1V portable DATE OF EXAM: 02/27/2018 COMPARISON: 02/22/2018 HISTORY: Pneumonia. Shortness of breath. Follow-up exam. TECHNIQUE: Single frontal view of the chest is obtained. FINDINGS: The known left upper lobe cavitary lesion appears smaller radiographically than the prior exam of 02/14/2018 now measuring just over 2 cm. Again there are bibasilar consolidations appearing s lightly improved from the prior as well. Left perihilar fullness remains. Lung apices appear clear. N o sizable pneumothorax or pleural effusion. Cardia mediastinal silhouette is within normal limits. IMPRESSION: Improving bilateral pneumonia and radiographically smaller left upper lobe cavitary lesi on.
[2018-02-27 08:50] LABS: Basophils % (A) 0 %; Eosinophils # (A) 0.2 k/uL (0-0.7); Eosinophils % (A) 2 %; HGB 13.7 gm/dL (11.4-16.0); Lymphocytes # (A) 1.7 k/uL (1.0-4.8); Lymphocytes % (A) 23 %; MCH 28.9 pg (25.0-35.0); MCHC 33.5 g/dL (31.0-37.0); MCV 86.3 fL (80.0-100.0); Mean Platelet Volume 6.5; Monocytes # (A) 0.3 k/uL (0-1.0); Monocytes % (A) 4 %; Neutrophils # (A) 5.1 k/uL (1.3-7.7); Neutrophils % (A) 69 %; Platelet Count 343 k/uL (150-450); RBC 4.75 m/uL (3.80-5.40); RDW 14.3 % (11.5-15.5); WBC 7.4 k/uL (3.8-10.6)
[2018-02-27 09:02] LABS: ALT 32 U/L (9-52); AST 34 U/L (14-36); Albumin 3.7 g/dL (3.5-5.0); Alkaline Phosphatase 95 U/L (38-126); Anion Gap 8 mmol/L; Blood Urea Nitrogen 5 mg/dL (7-17); Calcium 9.8 mg/dL (8.4-10.2); Carbon Dioxide 24 mmol/L (22-30); Chloride 111 mmol/L (98-107); Glucose 106 mg/dL (74-99); Potassium 4.1 mmol/L (3.5-5.1); Sodium 143 mmol/L (137-145); Total Bilirubin 0.5 mg/dL (0.2-1.3); Total Protein 6.9 g/dL (6.3-8.2)
[2018-02-27] MEDS: METHADONE 10 MG TAB PO SCH (10:23)
[2018-02-27] MEDS: HEPARIN SODIUM,PORCINE 5,000 UNIT/ML 1 ML VIAL SQ SCH ×2 (10:23→21:38)
[2018-02-27] MEDS: FAMOTIDINE 20 MG TAB PO SCH (10:23)
[2018-02-27] MEDS: PANTOPRAZOLE 40 MG TABLET PO SCH (10:23)
--- NOTE | 2018-02-27 11:28 | P.PN ---
Subjective Progress Note Date: 02/27/18 Principal diagnosis: Strep pyogenes pneumonia and lung abscess This is a 22-year-old white female patient was admitted to the hospital on 02/18 when she presented for evaluation fever and chills, worsening abscess in her right elbow. Patient also had a mild cough and chest congestion, she was bringing up some brown colored thick phlegm, she admitted to some minimal sharp chest pain. [facility] for history of heroin abuse. On admission her fever was 103F, she states she had been sick with cold type symptoms for 3 days prior to admission. Her right arm abscess was drained in the emergency department approximately 2-1/2 weeks ago, and patient was treated with oral clindamycin, with no improvement. Patient had swelling, redness, and 4 x 4 centimeter area of induration in the right antecubital fossa. Wound culture result was positive for strep pyogenes group A , and MRSA. Strep A was resistant to clindamycin, MRSA showed susceptibility. Chest x-ray showed patchy perihilar and left lower and upper lobe infiltrate. Lab work showed WBC of 12.7, hemoglobin of 13.1, INR of 2.0, sodium was 138, potassium is 3.4, CO2 is 19, BUN was 6, creatinine was 0.52, CRP was 236, lactic acid was 1.1, urinalysis showed 2+ protein, 4+ ketones, 1+ bilirubin, hCG was negative, influenza screen was negative, appetite has been was nonreactive, Legionella urine antigen was negative, repeat influenza was negative. Patient has been on antibiotics including Levaquin and vancomycin, ID service is involved in managing the antibiotics. Patient has been afebrile for last several days. Follow-up chest x-ray on February 20 showed extensive bilateral pneumonia worse on the left side. Chest x-ray on the showed improving left mid and lower lung acute infiltrates. And stable right medial basilar infiltrate. Patient's right elbow abscess is improving, redness and swelling have subsided, as well as the pain. Wound cultures are positive for strep pyogenes, sputum culture showed many normal respiratory phani, urine cultures pending. Echocardiogram showed an EF of 55-60%, with no significant valvular abnormality. CT chest abdomen and pelvis was obtained, and showed a 3.5 cm cavitating infiltrate in the anterior left upper lobe, airspace consolidation in the superior segment left lower lobe left paraspinal region. Patchy infiltrate and atelectasis at the posterior lung bases. Patient is resting comfortably in bed, in no acute distress, she states her reading has improved, she still coughing occasionally and producing some clear sputum, no fever or chills, room air pulse ox is 100%. Patient was reevaluated today on 02/26/2018, clinically the patient is feeling great, no cough no wheezing or shortness of breath, no fever no chills no hemoptysis no chest pain. Remains on antibiotics as per infectious disease for strep. pyogenes infection, presently on vancomycin and Levaquin. She is also on Zosyn. Patient is being considered for JEANNETTE, blood cultures have been negative, however the appearance lung Disease on the CT of the Chest Would Raise the Possibility of Septic Emboli. Clinically, the Patient Is Doing Better Than Expected. Labs Showed Normal CBC, Normal Basic Metabolic Profile, Normal Renal Profile. On 02/27/2018 patient seen again in follow-up on medical surgical floor. She is awake and alert, in no distress, on room air, afebrile, vital signs are stable, today's chest x-ray has been reviewed by Dr. Martin, and shows improving bilateral pneumonia and radiographically smaller left upper lobe cavitary lesion. Abiotic coverage includes Zosyn and vancomycin, follow blood cultures are negative. Today's blood work has been reviewed, WBC 7.4, hemoglobin is 13.7, sodium is 143, potassium is 4.1, chloride is 111, B1 is 5, creatinine 0.75. ID service is following, patient is scheduled for JEANNETTE sometime today, artery ALLERGY consultation is pending. Clinically patient is doing quite well, no specific complaints, no difficulty breathing, no chest pain. Still has some occasional cough with small amount of clear phlegm production. Right arm abscess continues to improve, no redness, no swelling. Objective - Vital Signs Vital signs: Vital Signs Temp 98.1 F 02/27/18 08:27 Pulse 60 02/27/18 08:27 Resp 16 02/27/18 08:27 BP 129/86 02/27/18 08:27 Pulse Ox 94 L 02/27/18 08:27 Intake & Output 02/26/18 02/27/18 02/27/18 18:59 06:59 18:59 Intake Total 1600 1100 Balance 1600 1100 Intake: Intake, IV Titration 800 750 Amount Levofloxacin 750Mg-D5w 100 150 Pmx 750 mg In Dextrose/ Water 1 150ml.bag @ 100 mls/hr IVPB Q24H [facility] Rx#: [id number] Piperacillin-Tazobactam 3 200 100 .375 gm In Sodium Chloride 0.9% 100 ml @ 25 mls/hr IVPB Q8H [facility] Rx#: [id number] Vancomycin 1,750 mg In 500 500 Sodium Chloride 0.9% 500 ml 500 ml @ 166.667 mls/ hr IVPB Q8H [facility] Rx#: [id number] Oral 800 350 Other: Voiding Method Toilet Toilet # Voids 1 - Exam GENERAL EXAM: Alert, pleasant, 22-year-old white female, comfortable in no apparent distress. HEAD: Normocephalic/atraumatic. EYES: Normal reaction of pupils, equal size. Conjunctiva pink, sclera white. NOSE: Clear with pink turbinates. THROAT: No erythema or exudates. NECK: No masses, no JVD, no thyroid enlargement, no adenopathy. CHEST: No chest wall deformity. Symmetrical expansion. LUNGS: Equal breath sounds bilaterally, with some scattered rhonchi, reveals no wheezes CVS: Regular rate and rhythm, normal S1 and S2, no gallops, no murmurs, no rubs ABDOMEN: Soft, nontender. No hepatosplenomegaly, normal bowel sounds, no guarding or rigidity. EXTREMITIES: No clubbing, no edema, no cyanosis, 2+ pulses and upper and lower extremities. MUSCULOSKELETAL: Muscle strength and tone normal. SPINE: No scoliosis or deformity SKIN: No rashes CENTRAL NERVOUS SYSTEM: Alert and oriented -3. No focal deficits, tone is normal in all 4 extremities. PSYCHIATRIC: Alert and oriented -3. Appropriate affect. Intact judgment and insight. - Labs CBC & Chem 7: 02/27/18 08:27 02/27/18 08:27 Labs: Abnormal Lab Results - Last 24 Hours (Table) 02/27/18 Range/Units 08:27 Chloride 111 H (98-107) mmol/L BUN 5 L (7-17) mg/dL Glucose 106 H (74-99) mg/dL Microbiology - Last 24 Hours (Table) 02/25/18 15:13 Blood Culture - Preliminary Blood No Growth after 24 hours 02/25/18 15:27 Blood Culture - Preliminary Blood No Growth after 24 hours 02/24/18 12:42 Blood Culture - Preliminary Blood No Growth after 48 hours Assessment and Plan Plan: Assessment: #1. Cavitating lung lesion in the left upper lobe and airspace consolidation in the left lower lobe, likely related to lung infection, possibly with MRSA. Another possibility includes septic emboli #2. Acute sepsis related to right arm abscess from the drug use with recent drainage, with cultures positive for MRSA and Strep A, on combination of Levaquin and vancomycin #3. Rule out infective endocarditis #4. Current smoker, 5 cigarettes a day #5. IV heroin abuse, currently at the [facility] #6. Occasional marijuana use #7. History of MRSA infection #8. Bipolar disorder Plan: Continue current antibiotic coverage, patient is scheduled for JEANNETTE today. Follow blood cultures have been negative, patient is afebrile, clinically completely asymptomatic, no dyspnea and no chest pain no fever or chills. I performed a history & physical examination of the patient and discussed their management with my nurse practitioner, Kenzie Valenzuela. I reviewed the nurse practitioner's note and agree with the documented findings and plan of care. Lung sounds are clear. The findings and the impression was discussed with the patient. I attest to the documentation by the nurse practitioner. Time with Patient: Less than 30
[2018-02-27] MEDS: MULTIVITAMINS, THERA 1 EACH TAB PO SCH (12:09)
--- NOTE | 2018-02-27 14:46 | P.CRDCN ---
History of Present Illness History of present illness: This is a pleasant 22-year-old female past medical history significant for IV heroin use. She also is a daily tobacco smoker. We have been asked to see her in consultation for purposes of obtaining a JEANNETTE to rule out infective endocarditis. She presented to the hospital 9 days ago and has been diagnosed with an abscess to the right antecubital foci as well as a cavitary pneumonia. Cultures are positive for strep biogenous. Blood cultures have been negative 4. Echocardiogram obtained reveals preserved left ventricular systolic function with ejection fraction 55-60% with no significant valvular abnormalities noted. She denies symptoms of chest discomfort, shortness of breath, dizziness, palpitations, nausea, vomiting or diaphoresis. EKG on admission reveals sinus tachycardia heart rate of 104 with T-wave inversions noted in the inferior and anterior lateral leads. Most recent chest x-ray obtained this morning reveals improving bilateral pneumonia and smaller left upper lobe cavitary lesion. Laboratory data reviewed, WBC 7.4, hemoglobin 13.7, platelets 343, sodium 143, potassium 4.1, creatinine 0.75, C-reactive protein 236. She is currently maintained on vancomycin, Zosyn and has been initiated on methadone. At the time of my exam: CONSTITUTIONAL: Denies fever. Denies chills. EYES: Denies blurred vision. Denies vision changes. Denies eye pain. EARS, NOSE, MOUTH & THROAT: Denies headache. Denies sore throat. Denies ear pain. CARDIOVASCULAR: Denies chest pain. Denies shortness of breath. Denies orthopnea. Denies PND. Denies palpitations. RESPIRATORY: Denies cough. GASTROINTESTINAL: Denies abdominal pain. Denies diarrhea. Denies constipation. Denies nausea. Denies vomiting. MUSCULOSKELETAL: Denies myalgias. INTEGUMENTARY: Denies pruitis. Denies rash. NEUROLOGIC: Denies numbness. Denies tingling. Denies weakness. PSYCHIATRIC: Denies anxiety. Denies depression. ENDOCRINE: Denies fatigue. Denies weight change. Denies polydipsia. Denies polyurina. GENITOURINARY: Denies burning, hematuria or urgency with micturation. HEMATOLOGIC: Denies history of anemia. Denies bleeding. Blood pressure 129/86 heart rate 60 afebrile maintaining oxygen saturation on room air GENERAL: This is a 22-year-old female in no apparent distress at the time of my examination. HEENT: Head is atraumatic, normocephalic. Pupils are equal, round. Sclerae anicteric. Conjunctivae are clear. Mucous membranes of the mouth are moist. Neck is supple. There is no jugular venous distention. No carotid bruit is heard. LUNGS: Clear to auscultation no wheezes, rales or rhonchi. No chest wall tenderness is noted on palpation or with deep breathing. HEART: Regular rate and rhythm without murmurs, rubs or gallops. S1 and S2 heard. ABDOMEN: Soft, nontender. Bowel sounds are heard. No organomegaly noted. EXTREMITIES: No evidence of peripheral edema and no calf tenderness noted. VASCULAR: Radial and dorsalis pedis pulses palpated, no evidence of clubbing. NEUROLOGIC: Patient is awake, alert and oriented x3. ASSESSMENT Cavitary lung lesion in the left upper lobe Acute sepsis secondary to right arm abscess from IV drug use cultures positive for MRSA and strep A Chronic nicotine dependence Recent IV heroin use PLAN Plan for JEANNETTE tomorrow. Patient will be kept nothing by mouth after midnight tonight. The procedure has been explained to the patient as well as her parents in great detail. They verbalized understanding and agree to move forward with the above-stated procedure. Repeat EKG. Thank you kindly for this consultation. Nurse Practitioner note has been reviewed, I agree with a documented findings and plan of care. Patient was seen and examined. Past Medical History Past Medical History: No Reported History Additional Past Medical History / Comment(s): abcess rt arm ,bipolar stated see' s thrapist at [facility], pleurisy, per pt's mom they think in past pt had a mumur. History of Any Multi-Drug Resistant Organisms: MRSA Date of last positivie culture/infection: 02/15/18 MDRO Source:: ARM Past Surgical History: No Surgical Hx Reported Past Anesthesia/Blood Transfusion Reactions: No Reported Reaction Past Psychological History: Bipolar Smoking Status: Current every day smoker Past Alcohol Use History: None Reported Past Drug Use History: Heroin - Past Family History Mother Family Medical History: No Reported History Father Family Medical History: No Reported History Medications and Allergies Home Medications Medication Instructions Recorded Confirmed Type Acetaminophen Tab [Tylenol Tab] 650 mg PO Q4H PRN 02/18/18 02/18/18 History Ibuprofen [Motrin] 600 mg PO Q6HR PRN 02/18/18 02/18/18 History Multivitamin,Therapeutic [Thera] 1 tab PO DAILY 02/18/18 02/18/18 History Methadone [Dolophine] 60 mg PO DAILY 02/19/18 02/19/18 History Albuterol Inhaler [Ventolin Hfa 1 - 2 puff INHALATION Q6HR PRN #1 02/22/18 Rx Inhaler] inhaler Levofloxacin [Levaquin] 750 mg PO DAILY #7 tab 02/22/18 Rx Sulfamethox-Tmp 800-160Mg [Bactrim 1 tab PO Q12HR #14 tab 02/22/18 Rx DS 800-160 mg] Allergies Allergy/AdvReac Type Severity Reaction Status Date / Time Sulfa (Sulfonamide Allergy Rash/Hives Verified 02/18/18 21:16 Antibiotics) Physical Exam Vitals: Vital Signs Temp Pulse Resp BP Pulse Ox 02/27/18 08:27 98.1 F 60 16 129/86 94 L 02/27/18 00:24 98.2 F 51 L 15 102/64 95 02/26/18 20:38 98.5 F 58 L 14 96/60 96 02/26/18 15:15 17 02/26/18 15:00 98.3 F 54 L 16 97/63 98 Intake and Output 02/26/18 02/27/18 02/27/18 22:59 06:59 14:59 Intake Total 950 150 Balance 950 150 Intake: Intake, IV Titration 600 150 Amount Levofloxacin 750Mg-D5w 150 Pmx 750 mg In Dextrose/ Water 1 150ml.bag @ 100 mls/hr IVPB Q24H [facility] Rx#: [id number] Piperacillin-Tazobactam 3 100 .375 gm In Sodium Chloride 0.9% 100 ml @ 25 mls/hr IVPB Q8H [facility] Rx#: [id number] Vancomycin 1,750 mg In 500 Sodium Chloride 0.9% 500 ml 500 ml @ 166.667 mls/ hr IVPB Q8H [facility] Rx#: [id number] Oral 350 Other: Voiding Method Toilet Toilet # Voids 1 1 Results 02/27/18 08:27 02/27/18 08:27 Cardiac Enzymes 02/27/18 Range/Units 08:27 AST 34 (14-36) U/L CBC 02/27/18 Range/Units 08:27 WBC 7.4 (3.8-10.6) k/uL RBC 4.75 (3.80-5.40) m/uL Hgb 13.7 (11.4-16.0) gm/dL Hct 41.0 (34.0-46.0) % Plt Count 343 (150-450) k/uL Comprehensive Metabolic Panel 02/27/18 Range/Units 08:27 Sodium 143 (137-145) mmol/L Potassium 4.1 (3.5-5.1) mmol/L Chloride 111 H (98-107) mmol/L Carbon Dioxide 24 (22-30) mmol/L BUN 5 L (7-17) mg/dL Creatinine 0.75 (0.52-1.04) mg/dL Glucose 106 H (74-99) mg/dL Calcium 9.8 (8.4-10.2) mg/dL AST 34 (14-36) U/L ALT 32 (9-52) U/L Alkaline Phosphatase 95 (38-126) U/L Total Protein 6.9 (6.3-8.2) g/dL Albumin 3.7 (3.5-5.0) g/dL Current Medications Generic Name Dose Route Start Last Admin Trade Name Freq PRN Reason Stop Dose Admin Acetaminophen 1,000 mg 02/19/18 00:00 02/27/18 12:09 Tylenol Tab PO 1,000 mg Q6H [facility] Administration Albuterol Sulfate 2.5 mg 02/22/18 05:59 02/23/18 09:24 Ventolin Nebulized INHALATION 2.5 mg RT-QID PRN Administration Shortness Of Breath Or Wheezing Famotidine 20 mg 02/19/18 21:00 02/27/18 10:23 Pepcid PO 20 mg BID [facility] Administration Heparin Sodium (Porcine) 5,000 unit 02/23/18 21:00 02/27/18 10:23 Heparin SQ 5,000 unit Q12HR [facility] Administration Vancomycin HCl 1,750 mg/ 500 mls @ 166.667 mls/hr 02/24/18 19:00 02/27/18 12: 09 Sodium Chloride IVPB 166.667 mls/hr Q8H [facility] Administration Piperacillin Sod/Tazobactam 100 mls @ 25 mls/hr 02/25/18 18:00 02/27/18 10:24 Sod 3.375 gm/ Sodium Chloride IVPB 25 mls/hr Q8H [facility] Administration Ibuprofen 600 mg 02/18/18 20:35 Motrin PO Q8H PRN fever Melatonin 10 mg 02/20/18 21:00 02/26/18 22:28 Melatonin PO 10 mg HS [facility] Administration Methadone HCl 60 mg 02/20/18 09:00 02/27/18 10:23 Dolophine PO 60 mg DAILY [facility] Administration Multivitamins 1 each 02/24/18 12:00 02/27/18 12:09 Theragran PO 1 each DAILY@1200 [facility] Administration Naloxone HCl 0.2 mg 02/18/18 20:31 Narcan IV Q2M PRN Opioid Reversal Ondansetron HCl 4 mg 02/18/18 20:31 02/23/18 23:24 Zofran IVP 4 mg Q8HR PRN Administration Nausea And Vomiting Pantoprazole Sodium 40 mg 02/24/18 07:30 02/27/18 10:23 Protonix PO 40 mg [id number] [facility] Administration Trazodone HCl 50 mg 02/22/18 21:45 02/26/18 22:28 Desyrel PO 50 mg HS [facility] Administration Intake and Output 02/26/18 02/27/18 02/27/18 22:59 06:59 14:59 Intake Total 950 150 Balance 950 150 Intake: Intake, IV Titration 600 150 Amount Levofloxacin 750Mg-D5w 150 Pmx 750 mg In Dextrose/ Water 1 150ml.bag @ 100 mls/hr IVPB Q24H [facility] Rx#: [id number] Piperacillin-Tazobactam 3 100 .375 gm In Sodium Chloride 0.9% 100 ml @ 25 mls/hr IVPB Q8H [facility] Rx#: [id number] Vancomycin 1,750 mg In 500 Sodium Chloride 0.9% 500 ml 500 ml @ 166.667 mls/ hr IVPB Q8H [facility] Rx#: [id number] Oral 350 Other: Voiding Method Toilet Toilet # Voids 1 1 02/27/18 08:27 02/27/18 08:27
--- NOTE | 2018-02-27 20:54 | PN ---
PROGRESS NOTE DATE OF SERVICE: 02/27/2018 This 22-year-old woman who was admitted with acute sepsis with Streptococcus pyogenes group B also had abscess on the right antecubital fossa. The patient had multiple lung abscesses also. Possible infected embolic source was considered. Cardiology has seen the patient and possibly recommended JEANNETTE tomorrow. No chest pain. No palpitations. No fever. EXAM: Alert and oriented x3. The pulse is 62, blood pressure 128/88, respirations 16, temperature 98 degrees, pulse ox 94% on room air. HEENT: Conjunctivae normal. NECK: No jugular venous distention. CARDIOVASCULAR: S1, S2 muffled. Ejection systolic murmur present. Respiratory: Breath sounds diminished in the bases. A few scattered rhonchi and crackles. Abdomen is soft, nontender. Legs no edema. No swelling. Nervous system: No focal deficits. ASSESSMENT: 1. Acute sepsis with Streptococcus pyogenes Group A possibly from abscess in the right antecubital fossa related to IV drug abuse. 2. Bilateral pneumonia with cavitating lesion with possible infected septic emboli. 3. Rule out infective endocarditis. 4. Ejection systolic murmur. 5. History of IV drug abuse. 6. History of MRSA. 7. History of bipolar. 8. History of nicotine dependence. BECAUSE: Recommend to continue current medications. Continue with monitoring, symptomatic treatment. Otherwise, at this time, I recommend continue with current medications, continue broad spectrum antibiotics, follow with multiple consultants for possible JEANNETTE. Guarded prognosis because of multiple complex medical issues. Further recommendations to follow. MMODL / IJN: [id number] /
[2018-02-27] MEDS: traZODone HCL 50 MG TAB PO SCH (21:38)
[2018-02-27] MEDS: MELATONIN 5 MG TABLET PO SCH (21:38)
--- NOTE | 2018-02-27 23:12 | PN ---
PROGRESS NOTE DATE OF SERVICE: 02/27/2018 REASON FOR FOLLOWUP: Left upper lobe pneumonia. INTERVAL HISTORY: The patient is currently afebrile. She is breathing more comfortably. The patient's cough has decreased in intensity; mostly dry to clear sputum. No hemoptysis. No chest pain. No nausea. No vomiting. No abdominal pain or diarrhea. PHYSICAL EXAMINATION: Blood pressure 105/68 with a pulse of 47, temperature 98.6. She is 95% on room air. General description is a young female up in the bed in no distress. RESPIRATORY SYSTEM: Unlabored breathing. Some coarse breath sounds on the left side. No wheeze. HEART: S1, S2. Regular rate and rhythm. ABDOMEN: Soft. No tenderness. EXTREMITIES: No edema of the feet. LABS: Hemoglobin 13.7, white count 7.4 with a BUN of 5, creatinine 0.75. CT was reviewed with the radiologist with left upper lobe with a cavitating lesion but no abscess. DIAGNOSTIC IMPRESSION AND PLAN: Patient with left upper lobe pneumonia, more likely community-acquired. Clinically doubt septic emboli or endocarditis, as the patient was never bacteremic. She is currently covered with vancomycin and Zosyn. Plan to transition them to oral antibiotic on discharge. The patient is at high risk with any outpatient IV antibiotic therapy because of her current IV drug use and her left upper lobe pneumonia. Hopefully will respond to oral antibiotics, as the patient also already received more than 10 days of antibiotic here in the hospital. MMODL / IJN: [id number] /
[2018-02-28] MEDS: PIPERACILLIN-TAZOBACTAM 3.375 GM in SODIUM CHLORIDE 0.9% 100 ML IVPB SCH ×3 (00:49→18:27)
[2018-02-28] MEDS: ACETAMINOPHEN TAB 500 MG TAB PO SCH ×6 (00:50→23:23)
[2018-02-28] MEDS: VANCOMYCIN 1,750 MG in SODIUM CHLORIDE 0.9% 500 ML 500 ML IVPB SCH ×2 (02:59→10:56)
[2018-02-28 07:44] VITALS: RESP 16
[2018-02-28] MEDS: PANTOPRAZOLE 40 MG TABLET PO SCH (08:07)
[2018-02-28 09:11] LABS: Basophils % (A) 0 %; Eosinophils # (A) 0.1 k/uL (0-0.7); Eosinophils % (A) 1 %; HCT 42.1 % (34.0-46.0); HGB 13.4 gm/dL (11.4-16.0); Lymphocytes # (A) 1.3 k/uL (1.0-4.8); Lymphocytes % (A) 13 %; MCH 28.1 pg (25.0-35.0); MCHC 31.8 g/dL (31.0-37.0); MCV 88.5 fL (80.0-100.0); Mean Platelet Volume 6.3; Monocytes # (A) 0.3 k/uL (0-1.0); Monocytes % (A) 4 %; Neutrophils % (A) 81 %; Platelet Count 307 k/uL (150-450); RBC 4.76 m/uL (3.80-5.40); RDW 14.3 % (11.5-15.5); WBC 9.9 k/uL (3.8-10.6)
[2018-02-28] MEDS: HEPARIN SODIUM,PORCINE 5,000 UNIT/ML 1 ML VIAL SQ SCH ×2 (09:17→21:12)
[2018-02-28 09:46] LABS: ALT 45 U/L (9-52); AST 56 U/L (14-36); Albumin 4.1 g/dL (3.5-5.0); Alkaline Phosphatase 107 U/L (38-126); Anion Gap 15 mmol/L; Blood Urea Nitrogen 8 mg/dL (7-17); Calcium 9.6 mg/dL (8.4-10.2); Carbon Dioxide 16 mmol/L (22-30); Chloride 110 mmol/L (98-107); Glucose 91 mg/dL (74-99); Potassium 4.2 mmol/L (3.5-5.1); Sodium 141 mmol/L (137-145); Total Bilirubin 0.8 mg/dL (0.2-1.3); Total Protein 7.2 g/dL (6.3-8.2)
[2018-02-28] MEDS ORDERED: VANCOMYCIN TROUGH DUE 1 EACH MISC MISCELLANE ONE (10:00)
[2018-02-28] MEDS: METHADONE 10 MG TAB PO SCH ×2 (10:06→12:59)
[2018-02-28] MEDS ORDERED: VANCOMYCIN IV PER PHARMACY 1 EACH MISC MISCELLANE PRN (10:58)
[2018-02-28] MEDS ORDERED: fentaNYL (PF) 50 MCG/ML 2 ML AMP ONE (11:14)
[2018-02-28] MEDS ORDERED: IV FLUID CONTINUATION 1,000 ML IV ONE (11:26)
[2018-02-28] MEDS ORDERED: fentaNYL (PF) 50 MCG/ML 2 ML AMP IV ONE (11:36)
[2018-02-28] MEDS ORDERED: BENZOCAINE SPRAY 1 CAN MUCOUS MEM ONE (11:37)
[2018-02-28] MEDS ORDERED: MIDAZOLAM 2 MG/2 ML VIAL IV ONE ×4 (11:37→11:42)
--- NOTE | 2018-02-28 12:49 | ECHOT ---
TRANSESOPHAGEAL ECHOCARDIOGRAM Ms. Barnes was admitted with a history of drug abuse, has been treated with cavitary pneumonia and positive blood cultures. In view of that, patient was recommended to have a transesophageal echocardiogram to rule out any evidence of endocarditis. PROCEDURE: Patient was given intravenous sedation with Versed and fentanyl and transesophageal echocardiogram was performed without any complications. The left ventricular chamber is normal in size with normal left ventricular systolic function. Mitral valve morphology is normal. There is no evidence of vegetations. Aortic valve morphology is normal. There is no evidence of vegetations. Tricuspid valve morphology is normal. There is no evidence of vegetations. Color Doppler study shows evidence of mild degree of mitral and tricuspid regurgitation. Intraatrial septum is intact. There is no evidence of any PFO. FINAL IMPRESSION: 1. This study does not show any evidence of vegetations on aortic, mitral or tricuspid valve. 2. Left ventricular systolic function is normal. 3. There is no evidence of thrombus in left atrial appendage. 4. Intraatrial septum is intact. There is no evidence of patent foramen ovale. 5. Color Doppler study shows evidence of mild degree of mitral and tricuspid regurgitation. MMODL / IJN: [id number] /
[2018-02-28] MEDS: MULTIVITAMINS, THERA 1 EACH TAB PO SCH (12:58)
--- NOTE | 2018-02-28 13:58 | P.PN ---
Subjective Progress Note Date: 02/28/18 Principal diagnosis: Strep pyogenes pneumonia and lung abscess This is a 22-year-old white female patient was admitted to the hospital on 02/18 when she presented for evaluation fever and chills, worsening abscess in her right elbow. Patient also had a mild cough and chest congestion, she was bringing up some brown colored thick phlegm, she admitted to some minimal sharp chest pain. [facility] history of [facility] abuse. On admission her fever was 103F, she states she had been sick with cold type symptoms for 3 days prior to admission. Her right arm abscess was drained in the emergency department approximately 2-1/2 weeks ago, and patient was treated with oral clindamycin, with no improvement. Patient had swelling, redness, and 4 x 4 centimeter area of induration in the right antecubital fossa. Wound culture result was positive for strep pyogenes group A , and MRSA. Strep A was resistant to clindamycin, MRSA showed susceptibility. Chest x-ray showed patchy perihilar and left lower and upper lobe infiltrate. Lab work showed WBC of 12.7, hemoglobin of 13.1, INR of 2.0, sodium was 138, potassium is 3.4, CO2 is 19, BUN was 6, creatinine was 0.52, CRP was 236, lactic acid was 1.1, urinalysis showed 2+ protein, 4+ ketones, 1+ bilirubin, hCG was negative, influenza screen was negative, appetite has been was nonreactive, Legionella urine antigen was negative, repeat influenza was negative. Patient has been on antibiotics including Levaquin and vancomycin, ID service is involved in managing the antibiotics. Patient has been afebrile for last several days. Follow-up chest x-ray on February 20 showed extensive bilateral pneumonia worse on the left side. Chest x-ray on the showed improving left mid and lower lung acute infiltrates. And stable right medial basilar infiltrate. Patient's right elbow abscess is improving, redness and swelling have subsided, as well as the pain. Wound cultures are positive for strep pyogenes, sputum culture showed many normal respiratory phani, urine cultures pending. Echocardiogram showed an EF of 55-60%, with no significant valvular abnormality. CT chest abdomen and pelvis was obtained, and showed a 3.5 cm cavitating infiltrate in the anterior left upper lobe, airspace consolidation in the superior segment left lower lobe left paraspinal region. Patchy infiltrate and atelectasis at the posterior lung bases. Patient is resting comfortably in bed, in no acute distress, she states her reading has improved, she still coughing occasionally and producing some clear sputum, no fever or chills, room air pulse ox is 100%. Patient was reevaluated today on 02/26/2018, clinically the patient is feeling great, no cough no wheezing or shortness of breath, no fever no chills no hemoptysis no chest pain. Remains on antibiotics as per infectious disease for strep. pyogenes infection, presently on vancomycin and Levaquin. She is also on Zosyn. Patient is being considered for JEANNETTE, blood cultures have been negative, however the appearance lung Disease on the CT of the Chest Would Raise the Possibility of Septic Emboli. Clinically, the Patient Is Doing Better Than Expected. Labs Showed Normal CBC, Normal Basic Metabolic Profile, Normal Renal Profile. On 02/27/2018 patient seen again in follow-up on medical surgical floor. She is awake and alert, in no distress, on room air, afebrile, vital signs are stable, today's chest x-ray has been reviewed by Dr. Martin, and shows improving bilateral pneumonia and radiographically smaller left upper lobe cavitary lesion. Abiotic coverage includes Zosyn and vancomycin, follow blood cultures are negative. Today's blood work has been reviewed, WBC 7.4, hemoglobin is 13.7, sodium is 143, potassium is 4.1, chloride is 111, B1 is 5, creatinine 0.75. ID service is following, patient is scheduled for JEANNETTE sometime today, artery ALLERGY consultation is pending. Clinically patient is doing quite well, no specific complaints, no difficulty breathing, no chest pain. Still has some occasional cough with small amount of clear phlegm production. Right arm abscess continues to improve, no redness, no swelling. On 02/28/2018 patient seen again in follow-up on medical surgical floor. She is awaiting her JEANNETTE today. Clinically she is stable, no specific complaints, no shortness of breath, no chest pain, no fever or chills. Blood cultures have all remained negative. The service is following, current antibiotic coverage includes Zosyn and vancomycin. Patient is possibly to be switched over to oral antibiotics if the JEANNETTE is negative. Todays labs have been reviewed, showed WBC of 9.9, hemoglobin of 13.4, sodium is 141, potassium is 4.2, chloride is 110, CO2 is 16, BUN is 8 and creatinine of 0.87. Vitals have been stable, room air pulse ox is 95%. Sounds are clear. Right arm abscess continues to improve. Objective - Vital Signs Vital signs: Vital Signs Temp 98.6 F 02/28/18 07:00 Pulse 83 02/28/18 07:00 Resp 16 02/28/18 07:00 BP 104/70 02/28/18 07:00 Pulse Ox 95 02/28/18 07:00 Intake & Output 02/27/18 02/28/18 02/28/18 18:59 06:59 18:59 Intake Total 1200 Balance 1200 Intake: Intake, IV Titration 1200 Amount Piperacillin-Tazobactam 3 200 .375 gm In Sodium Chloride 0.9% 100 ml @ 25 mls/hr IVPB Q8H SILVIA Rx#: [id number] Vancomycin 1,750 mg In 1000 Sodium Chloride 0.9% 500 ml 500 ml @ 166.667 mls/ hr IVPB Q8H SILVIA Rx#: [id number] Other: Voiding Method Toilet Toilet Toilet # Voids 2 2 - Exam GENERAL EXAM: Alert, pleasant, 22-year-old white female, comfortable in no apparent distress. HEAD: Normocephalic/atraumatic. EYES: Normal reaction of pupils, equal size. Conjunctiva pink, sclera white. NOSE: Clear with pink turbinates. THROAT: No erythema or exudates. NECK: No masses, no JVD, no thyroid enlargement, no adenopathy. CHEST: No chest wall deformity. Symmetrical expansion. LUNGS: Equal breath sounds bilaterally, with some scattered rhonchi, reveals no wheezes CVS: Regular rate and rhythm, normal S1 and S2, no gallops, no murmurs, no rubs ABDOMEN: Soft, nontender. No hepatosplenomegaly, normal bowel sounds, no guarding or rigidity. EXTREMITIES: No clubbing, no edema, no cyanosis, 2+ pulses and upper and lower extremities. MUSCULOSKELETAL: Muscle strength and tone normal. SPINE: No scoliosis or deformity SKIN: No rashes CENTRAL NERVOUS SYSTEM: Alert and oriented -3. No focal deficits, tone is normal in all 4 extremities. PSYCHIATRIC: Alert and oriented -3. Appropriate affect. Intact judgment and insight. - Labs CBC & Chem 7: 02/28/18 07:59 02/28/18 07:59 Labs: Abnormal Lab Results - Last 24 Hours (Table) 02/28/18 02/28/18 02/28/18 Range/Units 07:59 07:59 09:44 Neutrophils # 8.0 H (1.3-7.7) k/uL Chloride 110 H (98-107) mmol/L Carbon Dioxide 16 L (22-30) mmol/L AST 56 H (14-36) U/L C-Reactive Protein 25.0 H (<10.0) mg/L Vancomycin Trough 37.4 H* ug/mL Microbiology - Last 24 Hours (Table) 02/25/18 15:13 Blood Culture - Preliminary Blood No Growth after 48 hours 02/25/18 15:27 Blood Culture - Preliminary Blood No Growth after 48 hours 02/24/18 12:42 Blood Culture - Preliminary Blood No Growth after 72 hours Assessment and Plan Plan: Assessment: #1. Cavitating lung lesion in the left upper lobe and airspace consolidation in the left lower lobe, likely related to lung infection, possibly with MRSA. Another possibility includes septic emboli #2. Acute sepsis related to right arm abscess from the drug use with recent drainage, with cultures positive for MRSA and Strep A, on combination of Levaquin and vancomycin #3. Rule out infective endocarditis #4. Current smoker, 5 cigarettes a day #5. IV heroin abuse, currently at the [facility] facility #6. Occasional marijuana use #7. History of MRSA infection #8. Bipolar disorder Plan: Awaiting the results of the JEANNETTE. Clinically patient is stable, no complaints of dyspnea, no chest pain, fever or chills, blood cultures are all negative thus far, the service note has been noted. There is a possibility patient will be switched over to oral medications upon discharge home. I performed a history & physical examination of the patient and discussed their management with my nurse practitioner, Kenzie Valenzuela. I reviewed the nurse practitioner's note and agree with the documented findings and plan of care. Lung sounds are clear. The findings and the impression was discussed with the patient. I attest to the documentation by the nurse practitioner. Time with Patient: Less than 30
--- NOTE | 2018-02-28 15:24 | PN ---
PROGRESS NOTE DATE OF SERVICE: 02/28/2018 REASON FOR FOLLOWUP: Left upper lobe pneumonia. INTERVAL HISTORY: The patient is currently afebrile. She is breathing comfortably. The patient did have a JEANNETTE completed this morning with no evidence of any vegetation. The patient denies having any chest pain, no abdominal pain, no diarrhea. The cough has decreased in intensity and is mostly dry in nature. PHYSICAL EXAMINATION: Blood pressure is 104/70 with a pulse of 83, temperature 98.6. She is 95% on room air. General description is a young female, lying in bed in no distress. RESPIRATORY SYSTEM: Unlabored breathing, clear to auscultation anteriorly. HEART: S1, S2. Regular rate and rhythm. ABDOMEN: Soft, no tenderness. LABS: White count of 9.9, creatinine is 0.7. Vancomycin trough slightly elevated at 37.4. DIAGNOSTIC IMPRESSION AND PLAN: Patient left upper lobe cavitary pneumonia; however, sputum has been negative for any resistant pathogen. Currently on Zosyn and vancomycin. Culture has been high. Will recommend at least give the patient tomorrow to make sure the creatinine remains to be stable. If creatinine remains to be stable, advise to finish therapy with oral Augmentin, Levaquin combination for another 10 days with close outpatient followup. MMODL / IJN: [id number] /
[2018-02-28] MEDS: traZODone HCL 50 MG TAB PO SCH (21:12)
[2018-02-28] MEDS: MELATONIN 5 MG TABLET PO SCH (21:12)
--- NOTE | 2018-03-01 00:10 | PN ---
PROGRESS NOTE DATE OF SERVICE: 02/28/2018. HISTORY: This 22-year-old woman was admitted with significant sepsis, Streptococcus pyogenes group B as well as multiple organisms. Suspected also had lung abscess. The patient had a JEANNETTE today, the JEANNETTE showed no evidence of any vegetations, no evidence of thrombus in the left atrial appendage, no any evidence of any shunt also. Mild mitral and tricuspid regurgitation noted. No chest pain. No palpitations. No fever. Infectious Disease is following the patient closely and contemplating possible oral therapies with Augmentin Levaquin combination for 10 days. No chest pain. No palpitations. No fever. EXAM: Alert and oriented x3. Pulse is 69, blood pressure 190/70, respirations 16, temperature 98.4, pulse ox 94% on room air. HEENT: Conjunctivae normal. NECK: Neck veins not distended. CARDIOVASCULAR: S1 and S2 muffled. LUNGS: Breath sounds diminished at the bases. No rhonchi. No crackles. ABDOMEN: Soft, nontender. LEGS: No edema, no swelling. NERVOUS SYSTEM: No focal deficits. LABS: CBC within normal limits. Vancomycin 37.4. ASSESSMENT: 1. Acute sepsis. Streptococcus pyogenes group A, possibly from abscess in the right antecubital fossa secondary to IV drug abuse. 2. Bilateral pneumonia with cavitating lesion with possibly infected septic emboli. 3. No evidence of endocarditis on JEANNETTE. 4. Ejection systolic murmur. 5. History of IV drug abuse. 6. History of MRSA. 7. History of bipolar. 8. History of nicotine dependence. RECOMMENDATIONS AND DISCUSSION: I recommend to continue current management, continue with antibiotics. Otherwise the rest of the recommendations are per Infectious Disease. Closely monitor. Pulmonology also following the patient closely. Further recommendations to follow. MMODL / IJN: [id number] /
[2018-03-01] MEDS: PIPERACILLIN-TAZOBACTAM 3.375 GM in SODIUM CHLORIDE 0.9% 100 ML IVPB SCH ×2 (01:33→09:21)
[2018-03-01] MEDS: ACETAMINOPHEN TAB 500 MG TAB PO SCH (05:37)
[2018-03-01 05:47] LABS: Basophils % (A) 0 %; Eosinophils # (A) 0.2 k/uL (0-0.7); Eosinophils % (A) 1 %; HCT 40.9 % (34.0-46.0); HGB 13.2 gm/dL (11.4-16.0); Lymphocytes # (A) 1.7 k/uL (1.0-4.8); Lymphocytes % (A) 14 %; MCH 27.8 pg (25.0-35.0); MCHC 32.3 g/dL (31.0-37.0); MCV 86.3 fL (80.0-100.0); Mean Platelet Volume 6.6; Monocytes # (A) 0.5 k/uL (0-1.0); Monocytes % (A) 5 %; Neutrophils # (A) 9.1 k/uL (1.3-7.7); Neutrophils % (A) 78 %; Platelet Count 302 k/uL (150-450); RBC 4.74 m/uL (3.80-5.40); RDW 14.3 % (11.5-15.5); WBC 11.8 k/uL (3.8-10.6)
[2018-03-01 05:56] LABS: Albumin 3.7 g/dL (3.5-5.0); Calcium 9.4 mg/dL (8.4-10.2); Potassium 3.9 mmol/L (3.5-5.1); Total Bilirubin 0.9 mg/dL (0.2-1.3); Total Protein 6.7 g/dL (6.3-8.2)
[2018-03-01 06:02] LABS: Vancomycin,Random 12.1 ug/mL
[2018-03-01 07:31] VITALS: PULSE 60
[2018-03-01] MEDS ORDERED: VANCOMYCIN 1,750 MG in SODIUM CHLORIDE 0.9% 500 ML 500 ML IVPB ONE (08:30)
[2018-03-01] MEDS: MULTIVITAMINS, THERA 1 EACH TAB PO SCH (09:21)
[2018-03-01] MEDS: PANTOPRAZOLE 40 MG TABLET PO SCH (09:21)
[2018-03-01] MEDS: METHADONE 10 MG TAB PO SCH (09:21)
[2018-03-01] MEDS: HEPARIN SODIUM,PORCINE 5,000 UNIT/ML 1 ML VIAL SQ SCH (09:32)
[2018-03-01 15:21] VITALS: BP 111/71; TEMP 98
--- NOTE | 2018-03-01 16:08 | PN ---
PROGRESS NOTE DATE OF SERVICE: 03/01/2018 REASON FOR FOLLOWUP: Left upper lobe pneumonia. INTERVAL HISTORY: The patient is currently afebrile. She is breathing comfortably. The patient denies having any chest pain or shortness of breath. She did have very minimal cough which is dry in nature. No abdominal pain and no diarrhea. PHYSICAL EXAMINATION: Her blood pressure is 116/60 with a pulse of 60, temperature 97.9. She is 96% on room air. General description is a middle-aged female lying in bed in no distress. RESPIRATORY SYSTEM: Unlabored breathing with decreased breath sounds at the left base. No wheeze. HEART: S1, S2. Regular rate and rhythm. ABDOMEN: Soft. No tenderness. LABS: Hemoglobin 13.2, white count 11.8, BUN of 12, creatinine slightly elevated at 1.23. Vancomycin random has been 12.1. DIAGNOSTIC IMPRESSION AND PLAN: Patient with left upper lobe pneumonia in a patient admitted to hospital with a left antecubital fossa abscess from IV drug use source. Cultures were positive for MRSA and strep. The patient at this time is covered with Zosyn. Will discontinue the vancomycin. Kidney function to be monitored closely. If no further worsening of the kidney function, she will be able to finish therapy with oral Levaquin and Augmentin for another 7-10 days with close outpatient followup. Continue with supportive care. Prescription was sent to the pharmacy. TU / ADELITAN: [id number] /
--- NOTE | 2018-03-01 22:41 | DS ---
DISCHARGE SUMMARY DATE OF SERVICE: 03/01/2018. FINAL DIAGNOSES: 1. Acute sepsis secondary to Streptococcus pyogenes group A possibly from the abscess and cellulitis of the right antecubital fossa secondary to IV drug abuse. 2. Bilateral pneumonia with cavitary lesion, possibly septic emboli. 3. No evidence of infective endocarditis or shunt on TE. Ejection systolic murmur. 4. History IV drug abuse. 5. History of MRSA. 6. History of bipolar. 7. History of nicotine dependence. DISCHARGE CONDITION: The patient is being discharged in stable condition with guarded prognosis. HISTORY OF PRESENT ILLNESS: This 22-year-old woman with past medical history as mentioned was admitted with features of Streptococcus pyogenes group A sepsis, [facility] Patient has a history of IV drug abuse. Patient also had pain and swelling and abscess of the right antecubital fossa. The patient was also found to have bilateral septic emboli with cavitary lesion. Patient was followed closely. Cultures have been negative. Patient is on IV antibiotics. Infectious Disease saw the patient. The patient also had a TTE and JEANNETTE. showed normal valves as well as no evidence of any shunt. The patient was evaluated by Infectious Disease and recommended outpatient antibiotics. On exam, vitals are stable. Cardiovascular, S1 and S2 muffled. Few rhonchi. Abdomen soft. Nervous system, no focal deficits. DISCHARGE MEDICATIONS/MEDICATIONS: 1. Diet is cardiac. 2. Activity limited. FOLLOWUP: Follow up with primary physician and Pulmonology near the patient's home. DISCHARGE MEDICATIONS: 1. Tylenol 650 every 4 hours p.r.n. 2. Motrin 600 mg p.o. every 6 hours p.r.n. 3. Dolophine 60 mg p.o. daily. 4. Multivitamins 1 p.o. daily. 5. Albuterol multidose every 6 hours p.r.n. 6. Augmentin 875 mg p.o. b.i.d. for 10 days. 7. Levaquin 750 daily for 7 days. 8. Protonix 40 mg daily. Once again, the patient will be discharged in stable condition with guarded prognosis. MMODL / IJN: [id number] / MTDD
== END 2018-03-01 17:50 | disposition home or self-care (01) | DRG 871 ==
LOC: EC 17:59 → 4SSUR 20:40
PROVIDERS: ADMIT Internal Medicine; ATTEND Internal Medicine
PROC: B246ZZ4 Ultrasonography of Right and Left Heart, Transesophageal (ICD-10-PCS; principal; 2018-02-28 11:00)
DX: A40.0 Sepsis due to streptococcus, group A (principal); J15.4 Pneumonia due to other streptococci; J85.1 Abscess of lung with pneumonia; L03.113 Cellulitis of right upper limb; L02.413 Cutaneous abscess of right upper limb; I76 Septic arterial embolism; J98.11 Atelectasis; F11.20 Opioid dependence, uncomplicated; E87.6 Hypokalemia; F17.210 Nicotine dependence, cigarettes, uncomplicated; Z71.6 Tobacco abuse counseling; F31.9 Bipolar disorder, unspecified; I08.1 Rheumatic disorders of both mitral and tricuspid valves; Z16.29 Resistance to other single specified antibiotic; Z86.14 Personal history of Methicillin resistant Staphylococcus aureus infection; Z88.2 Allergy status to sulfonamides
CPT/HCPCS: 36415; 71045; 71046; 71250; 74176; 80048; 80053; 80074; 80202; 81001; 81025; 83605; 84132; 85025; 85027; 85610; 85652; 85730; 86140; 87040; 87070; 87077; 87086; 87186; 87205; 87390; 87449; 87502; 93005; 93306; 93312; 93320; 93325; 94640; 94760; 96361; 96365; 96368; 99285